=== PATIENT | male | born 1995 | race Caucasian/White ===

== ENCOUNTER 2019-12-30 10:22 | Outpatient (CLI) | payer BC, SELFPAY ==
--- NOTE | 2019-12-30 11:00 | NEURO_ITS ---
TEST: ELECTROENCEPHALOGRAM DIAGNOSIS: SEIZURES PATIENT NUMBER: [id number] EEG NUMBER: [id number] RECORDING DATE: 12/30/19 CLINICAL HISTORY: Patient reports the last couple of months he has been having episodes of d?j? vu and dizziness that lasts for about 10-15 seconds and then is fine. CONDITION OF RECORDING: Awake, drowsy and sleep EEG DESCRIPTION: Basic resting occipital frequency consists of small amount of poorly organized low voltage 8-10hz alpha mixed with low voltage 15-18hz beta. During drowsiness low voltage beta activity is seen diffusely mixed with waxing and waning posterior alpha rhythms and intermittent theta activity. Bilateral symmetrical sleep activity is seen during sleep. Photic stimulation produced normal drive. Hyperventilation produced normal and symmetrical build-up. Nonparoxysmal. Nonfocal. Nonlateralizing. IMPRESSION: No significant abnormalities noted. MTDD
== END 2019-12-30 10:23 | disposition home or self-care (01) ==
PROVIDERS: PCP Family Medicine; Visit Provider Family Medicine
DX: R56.9 Unspecified convulsions (principal)
CPT/HCPCS: 95816

== ENCOUNTER 2020-03-13 07:25 | Outpatient (CLI) | payer BC, SELFPAY ==
--- NOTE | ~2020-03-13 | MR_ITS ---
EXAMINATION: MR brain/brain stem wo/w con DATE: 03/13/2020 08:51 INDICATION: Epilepsy, unspecified, not intractable, without status epilepticus. TECHNIQUE: Magnetic resonance imaging (MRI) of the brain and brainstem was performed without and with 20 mL MultiHance intravenous contrast. Sequences included sagittal and axial T1-weighted FSE, axial diffusion-weighted FS EPI, axial T2*-weighted GRE, axial T2-weighted FLAIR Propeller, axial T2-weight ed Propeller, coronal T2-weighted FLAIR, and coronal T1-weighted 3D FSPGR. Postcontrast axial and cor onal T1-weighted FSE was obtained. Apparent diffusion coefficient (ADC) maps were created. COMPARISON: None. FINDINGS: Right hippocampus demonstrates increased T2-weighted signal intensity, consistent with kofi al temporal sclerosis. There is no intracranial hemorrhage, acute infarction, or abnormal intracrania l mass lesion. The ventricles are normal in size. There is mild mucosal thickening in right maxillary sinus. The orbits are normal. The mastoid air cells are normal. IMPRESSION: 1. Right-sided mesial temporal sclerosis. Reviewed, dictated and finalized at location A.
[2020-03-13 08:15] LABS: Estimated Glomerular Filt Rate > 60
== END 2020-03-13 07:26 | disposition home or self-care (01) ==
PROVIDERS: PCP Family Medicine; Visit Provider Family Medicine
DX: G40.909 Epilepsy, unspecified, not intractable, without status epilepticus (principal)
CPT/HCPCS: 70553; A9577

== ENCOUNTER 2022-05-12 14:53 | Emergency (ER) | payer BC, SELFPAY ==
[2022-05-12 14:55] VITALS: BP 150/98; PULSE 108; RESP 18; TEMP 36.8; O2SAT 98
--- NOTE | 2022-05-12 14:59 | ECG_ITS ---
Measurements Intervals [place] Rate: 70 P: 60 NC: 162 QRS: 34 QRSD: 102 T: 54 QT: 365 QTc: 394 Interpretive Statements SINUS RHYTHM DELAYED PRECORDIAL R/S TRANSITION BORDERLINE ECG NO PREVIOUS ECG AVAILABLE FOR COMPARISON Electronically Signed On 05-12-2022 17:44:52 [employer] by Flako Cline D.O.
[2022-05-12 15:26] LABS: Basophils Percent Auto 0.3 % (0.2-1.2); Eosinophils Absolute Auto 0.2 K/mm3 (0-0.3); Eosinophils Percent Auto 2.7 % (0-4.4); Hematocrit 44.6 % (42.0-52.0); Hemoglobin 15.8 g/dL (14.0-18.0); Immature Granulocyte Absolute 0.02 K/mm3 (0.00-0.031); Immature Granulocyte Percent A 0.3 % (0-0.5); Lymphocytes Absolute Auto 1.86 K/mm3 (0.9-3.2); Lymphocytes Percent Auto 29.9 % (18.3-44.2); Mean Corpuscular HGB Conc 35.4 g/dl (32-36); Mean Corpuscular Hemoglobin 31.7 pg (26-34); Mean Corpuscular Volume 89.6 fl (80-100); Monocytes Absolute Auto 0.6 K/mm3 (0.1-0.6); Neutrophils Absolute Auto 3.6 K/mm3 (1.3-6.7); Neutrophils Percent Auto 57.8 % (45.5-73.1); Platelet Count Result 222 k/mm3 (150-375); Red Blood Count 4.98 M/mm3 (4.6-6.20); Red Cell Distribution Width 11.6 % (11.5-14.5); White Blood Count 6.2 K/mm3 (4.5-10.0)
[2022-05-12 15:38] LABS: Alanine Aminotransferase 54 U/L (6-50); Albumin Level 5.2 g/dL (3.5-5.1); Alkaline Phosphatase 52 U/L (38-126); Anion Gap 15 mmol/L (8-16); Aspartate Amino Transferase 42 U/L (17-59); Bilirubin,Total 0.7 mg/dL (0.2-1.3); Blood Urea Nitrogen 13 mg/dL (9-20); Calcium 9.6 mg/dL (8.4-10.2); Carbon Dioxide 24 mmol/L (22-30); Chloride 103 mmol/L (98-107); Estimated CRCL calculation 112 ml/min; Estimated Glomerular Filt Rate > 60; Glucose 98 mg/dL (65-110); Potassium 3.8 mmol/L (3.4-5.0); Sodium 142 mmol/L (137-145)
[2022-05-12 15:41] LABS: Acetaminophen < 10 ug/mL (10-30); Ethanol < 10 mg/dL (<10); Salicylate < 1.0 mg/dL (2-20)
[2022-05-12 16:03] LABS: Influenza A QL RT-PCR Negative (Negative); Influenza B QL RT-PCR Negative (Negative); SARS-CoV-2 RNA PCR Negative
[2022-05-12 16:05] LABS: Appearance Urine Clear (Clear); Bilirubin Urine Negative (Negative); Blood Urine Negative (Negative); Color Urine Yellow (Yellow); Glucose Urine UA Negative (Negative); Ketones Urine Negative (Negative); Leukocyte Esterase Ur Negative LEU/UL (Negative); Nitrate Urine Negative (Negative); Protein Urine Negative (Negative); Specific Grav Ur >= 1.030 (1.001-1.035); Urobilinogen Urine 0.2 mg/dL (<2.0)
[2022-05-12 16:10] LABS: Add Urine Microscopic? NO
--- NOTE | 2022-05-12 16:15 | ED.PSYCH ---
HPI - Psych General Chief Complaint: Psychiatric Symptoms Stated Complaint: suicidal ideation Time Seen by Provider: 05/12/22 16:13 Source: patient Mode of arrival: ambulatory Limitations: no limitations History of Present Illness HPI Narrative: Patient is a 27-year-old male with a history of bipolar disorder, depression, epilepsy on Keppra, lacosamide, presenting to the emergency department for evaluation of suicidal ideation. Patient reports worsening depression over the past several weeks, now with passive suicidal ideation. Patient states that he has thoughts of wanting to but does not have a plan. There is access to firearms in the house that are not secured in a safe. Patient denies history of suicide attempt in the past. He lives with his mom and states that he is safe at home and has a good support system. Patient was on Lexapro previously for his depression but was recently transition to Trintellix over the past week. Patient has not had an improvement in his symptoms with the new medication. Denies other medication changes. He has been compliant with his antiseizure medications. He denies headache, chest pain, nausea, vomiting. Denies abdominal pain. Patient reports increase sleep requirement secondary to the depression. He reports decreased appetite secondary to depression. Related Data Home Medications Medication Instructions Recorded Confirmed levetiracetam 1,000 mg tablet 1,500 mg PO BID 08/30/20 02/12/22 (Keppra) lacosamide 50 mg tablet (Vimpat) 200 mg PO BID 04/01/21 02/12/22 vortioxetine 5 mg tablet 5 mg PO DAILY 05/12/22 05/12/22 (Trintellix) Allergies Allergy/AdvReac Type Severity Reaction Status Date / Time lamotrigine Allergy Mild Rash Verified 05/12/22 14:53 sulfamethizole Allergy Unknown Skin Verified 05/12/22 14:53 Reaction sulfamethoxazole Allergy Unknown UNKNOWN Verified 05/12/22 14:53 trimethoprim Allergy Unknown UNKNOWN Verified 05/12/22 14:53 Review of Systems Review of Systems: CONSTITUTIONAL: Denies fever, chills, or sweats. EYES: Denies visual changes, redness, or discharge. ENT: Denies rhinorrhea, congestion, sore throat, or otalgia. CARDIOVASCULAR: Denies chest pain, palpitations, or edema. RESPIRATORY: Denies cough or dyspnea. GASTROINTESTINAL: Denies abdominal pain, nausea, vomiting, or diarrhea. GENITOURINARY: Denies dysuria or hematuria. SKIN: Denies rash or itching. MUSCULOSKELETAL: Denies back pain, joint pain, or myalgia. NEUROLOGIC: Denies headache, numbness, or weakness. PSYCHIATRIC: Patient reports depression, reports suicidal ideation without a specific plan PMFSH Past Medical History Medical History Bipolar affective disorder, currently depressed, moderate Hepatitis A History of pilonidal cyst had surgery on one back in 2012 or 2013 and it never went away Pilonidal cyst without abscess Seizure disorder Severe depressive episode with psychotic symptoms Family History Family History Father COPD (chronic obstructive pulmonary disease) Mother COPD (chronic obstructive pulmonary disease) Social History Social History Smoking status: Never smoker Alcohol intake: never Substance use type: marijuana Exam Narrative: GENERAL: Awake, alert, conversant HEAD: Normocephalic, atraumatic. EYES: PERRLA and EOMI. ENT: Nares clear, no rhinorrhea or epistaxis. Mucous membranes moist. NECK: Supple. CHEST: No respiratory distress, breathing even and non labored HEART: Regular rate, sinus rhythm ABDOMEN:Non distended, non tender EXTREMITIES: Normal range of motion. No edema. SKIN: Warm, dry, no rash. NEURO:No focal deficits. Alert and oriented x3 Course Vital Signs Vital signs: Vital Signs Temperature 36.8 C 05/12/22 14:55 Pulse Rate 108 H 05/12/22 14:55 Respiratory Rate 18
[2022-05-12 16:21] LABS: Amphetamine Screen Urine Negative (Negative); Barbiturate Screen Urine Negative (Negative); Benzodiazepines Screen Urine Negative (Negative); Cannabinoid Screen Urine Positive (Negative); Cocaine Screen Urine Negative (Negative); Methadone Screen Urine Negative (Negative); Opiate Screen Urine Negative (Negative); Phencyclidine Screen Urine Negative (Negative)
[2022-05-12 19:00] VITALS: BP 132/93; PULSE 75; RESP 14; O2SAT 100
--- NOTE | 2022-05-12 19:13 | PC.NURSE ---
crisis called will be in to eval pt within the hour.
[2022-05-15 09:00] LABS: Levetiracetam Keppra 32.7 mcg/mL (6.0-46.0)
== END 2022-05-12 22:00 | disposition home or self-care (01) ==
PROVIDERS: Family Medicine; Emergency Provider Emergency Medicine; PCP Family Medicine
DX: R45.851 Suicidal ideations (principal); F31.9 Bipolar disorder, unspecified; G40.909 Epilepsy, unspecified, not intractable, without status epilepticus; Z20.822 Contact with and (suspected) exposure to COVID-19; R94.31 Abnormal electrocardiogram [ECG] [EKG]
CPT/HCPCS: 36415; 80053; 80177; 80307; 81003; 84443; 85025; 87636; 93005; 99284

== ENCOUNTER 2023-03-11 08:41 | Emergency (ER) | payer BC, SELFPAY ==
[2023-03-11 08:58] VITALS: BP 124/93; PULSE 105; RESP 16; TEMP 36.4
[2023-03-11 09:02] VITALS: BP 124/93; PULSE 105; RESP 16; TEMP 36.4
--- NOTE | 2023-03-11 09:42 | ED.URI ---
HPI - URI/Sore Throat General Chief Complaint: Upper Respiratory Infection Stated Complaint: COUGH Time Seen by Provider: 03/11/23 09:28 Source: patient, family (Mother) and RN notes reviewed Mode of arrival: ambulatory Limitations: no limitations History of Present Illness HPI Narrative: Patient presents today complaining of 5 day history of cough that has worsened since onset. Two days ago patient had a phone visit with his PCP and was prescribed benzonatate and prednisone, which has not been improving his symptoms. He has also been taking DayQuil, NyQuil, and cough drops. Denies any additional symptoms to include rhinorrhea, congestion, fever, sore throat, shortness of breath. He is a nonsmoker. Related Data Home Medications Medication Instructions Recorded Confirmed levetiracetam 1,000 mg tablet 1,500 mg PO BID 08/30/20 03/11/23 (Keppra) lacosamide 50 mg tablet (Vimpat) 200 mg PO BID 04/01/21 03/11/23 vilazodone 10 mg tablet (Viibryd) 10 mg PO DAILY 01/14/23 03/11/23 Allergies Allergy/AdvReac Type Severity Reaction Status Date / Time lamotrigine Allergy Mild Rash Verified 03/11/23 09:10 sulfamethizole Allergy Unknown Skin Verified 03/11/23 09:10 Reaction sulfamethoxazole Allergy Unknown UNKNOWN Verified 03/11/23 09:10 trimethoprim Allergy Unknown UNKNOWN Verified 03/11/23 09:10 Review of Systems Review of Systems: CONSTITUTIONAL: Denies body aches, fever, chills, or sweats. EYES: Denies visual changes, redness, or discharge. ENT: Denies rhinorrhea, congestion, sore throat, or otalgia. CARDIOVASCULAR: Denies chest pain, palpitations, or edema. RESPIRATORY: Denies dyspnea.+ cough GASTROINTESTINAL: Denies abdominal pain, nausea, vomiting, or diarrhea. GENITOURINARY: Denies dysuria or hematuria. SKIN: Denies rash, itching, or wounds. MUSCULOSKELETAL: Denies back pain, joint pain, or myalgia. NEUROLOGIC: Denies headache, numbness, tingling, or weakness. PSYCH: Denies depression or anxiety. ON LICENSE OF [facility] Past Medical History Medical History Bipolar affective disorder, currently depressed, moderate Hepatitis A History of pilonidal cyst had surgery on one back in 2012 or 2013 and it never went away Pilonidal cyst without abscess Seizure disorder Severe depressive episode with psychotic symptoms Family History Family History Father COPD (chronic obstructive pulmonary disease) Mother COPD (chronic obstructive pulmonary disease) Social History Social History Smoking status: Never smoker Alcohol intake: never Substance use type: marijuana Lack of Transportation: No Lack of Food: Never True Current Housing: I Have Housing Concerned About Future Housing: No Difficulty Paying Gas/Electric Bills: No Difficulty Paying for Meds: No Currently Unemployed: No Education: Associate Degree Difficulty w/ Childcare or Family Care: No Comments At time of signature, I have reviewed and agree with nursing past medical, surgical, social and family history unless otherwise noted. Please see nursing chart for further information. There is no relevant family history pertinent to the presenting complaint Exam Narrative: GENERAL: Well-appearing, well-nourished, and in no acute distress. HEAD: Normocephalic, atraumatic. EYES: EOMI. No redness or drainage. Conjunctivae normal. ENT: Mucous membranes pink and moist. Nares clear. No rhinorrhea. TMs normal bilaterally. Throat normal. Uvula midline. NECK: Normal AROM. Supple. No lymphadenopathy. CHEST: No respiratory distress. Clear to auscultation. HEART: Regular rate and rhythm. No murmur appreciated. Normal peripheral pulses. EXTREMITIES: Normal range of motion. No edema. SKIN: Warm, dry, no rash. Capillary refill normal. Normal skin turgor. NEURO: No focal defici
== END 2023-03-11 10:00 | disposition home or self-care (01) ==
PROVIDERS: Emergency Provider Nurse Practitioner; PCP Family Medicine
DX: R05.1 Acute cough (principal); Z79.899 Other long term (current) drug therapy
CPT/HCPCS: 99213; G0463

== ENCOUNTER 2025-02-05 12:09 | Emergency (ER) | payer BC, SELFPAY ==
[2025-02-05 12:21] VITALS: BP 145/98; PULSE 101; RESP 16; TEMP 35.8; O2SAT 98
--- NOTE | 2025-02-05 13:22 | ED_ITS ---
HPI - General Adult General Chief complaint: Skin/Abscess/Foreign Body Stated complaint: ABSCESS Source: patient Mode of arrival: ambulatory Limitations: no limitations History of Present Illness HPI narrative: Pt presents for evaluation of redness and swelling in coccyx for the past two day. He has a history of infected pilonidal cyst. He states that he had it drained in the past in the operating room. He denies any fever, chills, nausea, vomiting. He is not diabetic. He soaked in a warm bath last night and it has become more painful since that time. Rates his current pain is 7 out 10 in severity. No drainage from the affected area. He has been taking tylenol for his symptoms. Related Data Home Medications ?Medication ?Instructions ?Recorded ?Confirmed ?Last Taken ?Type levetiracetam 1,000 mg tablet 1,500 mg PO BID 08/30/20 04/14/24 Unknown History (Keppra) lacosamide 50 mg tablet (Vimpat) 200 mg PO BID 04/14/24 Unknown History vilazodone 10 mg tablet (Viibryd) 10 mg PO DAILY 01/1404/14/24 Unknown History Allergies Allergy/AdvReac Type Severity Reaction Status Date / Time lamotrigine Allergy Mild Rash Verified 02/05/25 12:54 sulfamethizole Allergy Unknown Skin Verified 02/05/25 12:54 Reaction sulfamethoxazole Allergy Unknown UNKNOWN Verified 02/05/25 12:54 trimethoprim Allergy Unknown UNKNOWN Verified 02/05/25 12:54 Review of Systems Review of Systems: CONSTITUTIONAL: Denies fever, chills, or sweats. EYES: Denies visual changes, redness, or discharge. ENT: Denies rhinorrhea, congestion, sore throat, or otalgia. CARDIOVASCULAR: Denies chest pain, palpitations, or edema. RESPIRATORY: Denies cough or dyspnea. GASTROINTESTINAL: Denies abdominal pain, nausea, vomiting, or diarrhea. GENITOURINARY: Denies dysuria or hematuria. SKIN: Reports redness to the coccyx MUSCULOSKELETAL:Reports pain in the coccyx NEUROLOGIC: Denies headache, numbness, dizziness, or weakness. PSYCHIATRIC: Denies anxiety or depression. FORMERLY [facility] Past Medical History Medical History Infected pilonidal cyst Strain of muscle and tendon of front wall of thorax, initial encounter right sided Seizure disorder Hepatitis A History of pilonidal cyst had surgery on one back in 2012 or 2013 and it never went away Bipolar affective disorder, currently depressed, moderate Pilonidal cyst without abscess Severe depressive episode with psychotic symptoms Surgical History Surgical History History of incision and drainage Family History Family History Father COPD (chronic obstructive pulmonary disease) Mother COPD (chronic obstructive pulmonary disease) Social History Social History Smoking status: Never smoker Alcohol intake: never Substance use type: marijuana Lack of Transportation: No Lack of Food: Never True Current Housing: I Have Housing Concerned About Future Housing: No Difficulty Paying Gas/Electric Bills: No Difficulty Paying for Meds: No Currently Unemployed: No Education: Associate Degree Difficulty w/ Childcare or Family Care: No Exam Narrative: GENERAL: Well-appearing, well-nourished, and in no acute distress. HEAD: Normocephalic, atraumatic. EYES: PERRLA and EOMI. ENT: Nares clear, no rhinorrhea or epistaxis. Mucous membranes moist. Oropharynx without tonsillar hypertrophy exudate or other lesions. Bilateral TMs pearly martin nonbulging NECK: Supple. No adenopathy or masses. No carotid bruits or JVD CHEST: Clear to auscultation. No respiratory distress. No wheezes rales or rhonchi HEART: Regular rate and rhythm. No murmur heard. Normal peripheral pulses. ABDOMEN: Soft, nontender, nondistended, normal active bowel sounds. EXTREMITIES: Normal range of motion. No edema. There is tenderness over the coccyx SKIN: there is an approximately 2.5cm area erythema and induration noted to the coccyx NEURO: No focal deficits. Alert and oriented x3. PSYCH: Normal mood and affect. Course Course Emergency Course: This is a 29 year male who presented for evaluation of pain, redness, and swelling in the area of the coccyx. This appears to be an infected pilonidal cyst. There does not appear to be drainable fluid collection is there is no fluctuance on exam. Recommend oral antibiotics and pain control. Will discharge with clindamycin and hydrocodone. He was provided with a paper prescription for hydrocodone as it would not send electronically. He should follow-up with his primary provider. Application of warm moist heat may help. Go to the ER for worsening symptoms. Patient in agreement with plan care. Level of Care: Express Care Visit Vital Signs Vital signs: Vital Signs Temperature 35.8 C L 02/05/25 12:21 Pulse Rate 101 H 02/05/25 12:21 Respiratory Rate 16 02/05/25 12:21 Blood Pressure 145/98 H 02/05/25 12:21 Pulse Oximetry 98 02/05/25 12:21 Temperature 35.8 C L 02/05/25 12:21 Pulse Rate 101 H 02/05/25 12:21 Respiratory Rate 16 02/05/25 12:21 Blood Pressure 145/98 H 02/05/25 12:21 Pulse Oximetry 98 02/05/25 12:21 Medical Decision Making Vital Signs Vital Signs: Vital Signs Temperature 35.8 C L 02/05/25 12:21 Pulse Rate 101 H 02/05/25 12:21 Respiratory Rate 16 02/05/25 12:21 Blood Pressure 145/98 H 02/05/25 12:21 Pulse Oximetry 98 02/05/25 12:21 Temperature 35.8 C L 02/05/25 12:21 Pulse Rate 101 H 02/05/25 12:21 Respiratory Rate 16 02/05/25 12:21 Blood Pressure 145/98 H 02/05/25 12:21 Pulse Oximetry 98 02/05/25 12:21 Discharge Plan Discharge Clinical Impression: Infected pilonidal cyst Patient Disposition: Home Condition: Stable Instructions: Antibiotic Form, Pilonidal Cyst (ED) Patient Language: Macedonian Prescriptions: New clindamycin HCl [Cleocin HCl] 300 mg capsule 300 mg PO Q6H Qty: 40 0RF No Action levetiracetam [Keppra] 1,000 mg tablet 1,500 mg PO BID Vimpat 50 mg tablet 200 mg PO BID vilazodone [Viibryd] 10 mg tablet 10 mg PO DAILY Rx Instructions: must administer with a meal/food amoxicillin 500 mg capsule 500 mg PO Q8H Qty: 21 1RF Follow-up/Referrals: Onesimo Roblero MD [Primary Care Provider, [facility]] Time of Disposition: 13:19
== END 2025-02-05 13:26 | disposition home or self-care (01) ==
PROVIDERS: Emergency Provider Nurse Practitioner; PCP Family Medicine
DX: L05.91 Pilonidal cyst without abscess (principal); L30.3 Infective dermatitis; G40.909 Epilepsy, unspecified, not intractable, without status epilepticus; F31.9 Bipolar disorder, unspecified
CPT/HCPCS: 99213; G0463

== ENCOUNTER 2025-03-28 10:01 | Emergency (ER) | payer BC, SELFPAY ==
[2025-03-28 10:04] VITALS: BP 163/100; PULSE 94; RESP 20; TEMP 36.4; O2SAT 98
[2025-03-28 10:48] LABS: Hematocrit 49.0 % (42.0-52.0); Hemoglobin 16.7 g/dL (14.0-18.0); Immature Granulocyte Percent A 0.3 % (0-0.5); Lymphocytes Absolute Auto 2.05 K/mm3 (0.9-3.2); Mean Corpuscular HGB Conc 34.1 g/dl (32-36); Mean Corpuscular Hemoglobin 31.5 pg (26-34); Mean Corpuscular Volume 92.5 fl (80-100); Nucleated Red Blood Cells Absolute Auto 0.000 K/mm3 (0.0-0.012); Nucleated Red Blood Cells Perc 0.0 % (0.0-0.2); Platelet Count Result 262 k/mm3 (150-375); Red Blood Count 5.30 M/mm3 (4.6-6.20); White Blood Count 7.7 K/mm3 (4.5-10.0)
[2025-03-28 11:10] LABS: SARS-CoV-2 RNA PCR Negative (Negative)
[2025-03-28 11:17] LABS: Alanine Aminotransferase 106 U/L (6-50); Albumin Level 5.1 g/dL (3.5-5.1); Alkaline Phosphatase 55 U/L (38-126); Anion Gap 12 mmol/L (4-12); Aspartate Amino Transferase 65 U/L (17-59); Bilirubin,Total 1.0 mg/dL (0.2-1.3); Blood Urea Nitrogen 13 mg/dL (9-20); Calcium 9.6 mg/dL (8.4-10.2); Carbon Dioxide 22 mmol/L (22-30); Chloride 106 mmol/L (98-107); Estimated CRCL calculation 130 ml/min; Estimated Glomerular Filt Rate > 60; Glucose 114 mg/dL (65-110); Potassium 4.3 mmol/L (3.4-5.0); Sodium 140 mmol/L (137-145); Total Protein 7.9 g/dL (6.3-8.2)
--- OUTSIDE RECORDS SUMMARY | 2025-03-28 11:30 | XMS_ITS | Clinical Summary ---
Author Organization [facility] [employer] Address [address] [place] [address] Care Team Providers Care [employer] Name Role Phone Onesimo Roblero MD Primary Care Provider [phone] Source Comments [facility] [employer],non-owned Affiliates and Associated Physician Practices is amultiple site organization consisting of ambulatory clinics and hospital sitesin [place], [place], [place] and [place]. This disclosure is being madepursuant to the Care Everywhere program and may not contain all information available regarding this patient. Last updated 18.[facility] [employer] Allergies Active Allergy Reactions Criticality Noted Date Comments Lamotrigine Urticaria,Itching Medium 10/29/2020 [place] Unknown 04/20/2024 Sulfamethoxazole W-Trimethoprim Urticaria Medium 10/13 Medications * Be aware that medications may not be up to date on this document. Alwaysverify current medications with the patient. Spravato, 84 MG Dose, 28 MG/DEVICE nasal spray 04/13/2023 Active vilazodone (Viibryd) 40 MG tablet Take 1 (one) tablet by mouth once daily 03/18/2023 Active levETIRAcetam (Keppra) 1000 MG tablet TAKE 1 AND 1/2 TABLETS BY MOUTH TWICE DAILY FOR SEIZURES 270 tablet 3 08/15/2024 Active lacosamide (Vimpat) 200 MG tablet TAKE 1 TABLET BY MOUTH TWICE DAILY 180 tablet 1 12/29/2024 Active Active Problems Problem Noted Date Diagnosed Date Seizures 10/29/2020 Encounters Date Type Department Care Team Description 12/29/2024 Refill [facility] [employer] [facility] [address] [id number] Tung Madison MD MEDICATION REFILL from Last 3 Months Social History Tobacco Use Types Packs/Day Years Used Date Smoking Tobacco: Never Smokeless Tobacco: Never Sex and Gender Information Value Date Recorded Sex Assigned at Not on file Legal Sex Male 9:30 AM CDT Gender Identity Not on file Sexual Orientation Not on file Last Filed Vital Signs Vital Sign Reading Time Taken Comments Blood Pressure 110/90 12/12/2020 2:17 PM CDT Pulse 74 12/12/2020 2:17 PM CDT Temperature 36.7 C (98 F) 11/02/2020 1:39 PM CDT Respiratory Rate 14 09/12/2021 12:01 PM CDT Oxygen Saturation 98% 12/12/2020 2:17 PM CDT Inhaled Oxygen Concentration - - Weight 111.1 kg (245 lb) 04/20/2024 12:39 PM [employer] Height 172.7 cm (5' 8) 04/20/2024 12:39 PM [employer] Body Mass Index 37.25 04/20/2024 12:39 PM [employer] Plan of Treatment Upcoming Encounters Date Type Department Care Team (Late st Contact Info) Description 04/19/2025 12:00 PM [employer] Office Visit [facility] [address] [id number] [place] [address] [address] Health Maintenance Due Date Last Done Comments HIV SCREENING 2009 HEPATITIS C SCREENING 04/19/2012 DTAP/TDAP/TD VACCINES (1 - Tdap) 2013 HEPATITIS B VACCINE (1 of 3 - 19+ 3-dose series) 2013 HPV VACCINE (1 - 3-dose SCDM series) 2021 DEPRESSION SCREENING 06/15/2024 COVID-19 VACCINE (1 - 2023-2 5 season) 2025 INFLUENZA VACCINE (#1) 2025 ZOSTER VACCINE (1 of 2) 2044 HIB VACCINE Aged Out No longer eligi ble based on patient's age to complete this topic MENINGOCOCCAL (Group B) VACC INE SHARED DECISION-MAKING Aged Out No longer eligibl e based on patient's age to complete this topic MENINGOCOCCAL GROUPS A/C/Y/W VACCINE Aged Out No longer eligible b ased on patient's age to complete this topic PNEUMOCOCCAL VACCINE Aged Out No long er eligible based on patient's age to complete this topic Insurance ANTHEM Advance Directives * Full Code (Latest Code Status on File) Date Activated Date Inactivated Comments 10/31/2020 2:02 PM 11/02/2020 3:00 PM * Full Code Date Activated Date Inactivated Comments 10/29/2020 9:56 AM 10/31/2020 2:02 PM Care Teams [employer] Relationship Specialty Start Date End Date Onesimo Roblero MD [facility] [place] [address] PCP - General Family Medicine 10/29/20
--- OUTSIDE RECORDS SUMMARY | 2025-03-28 11:30 | XMS_ITS | Patient Health Record ---
Author Organization [facility] [employer] Address [address] [facility] [address] [place] [address] Care Team Providers Care Appetizer Packer Name Role Phone Stacy Ferrer Unavailable [phone] Roxann Doe Unavailable [phone] Omar Kay Unavailable [phone] Feli Gallego Unavailable [phone] Kemi Raya Unavailable [phone] Saleem Kwon Unavailable [phone] Allergies Allergen (clinical drug ingredient) Drug/Non Drug Allergy documented on EMR Reaction Allergy Type Onset Date Status lamotrigine lamoTRIgine Unknown Drug Allergy 10/23/2023 Ac tive Septra Unknown Drug Allergy 10/23/2023 Active Results Component Value Reference Range Notes UDT (Not yet reviewed by pro vider) Interpretation: Performing Lab: Notes/Report: THC n 0 - 50 ng/ml Cocaine n 0 - 300 ng/ml Amphetamine n 0 - 1000 ng/ml Buprenorphine (BUP) n 0 - 10 ng/ml Secobarbital (Bar) n 0 - 300 ng/ml Oxazepam (BZO) n 0 - 300 ng/ml 1-fpebsubevj-3,9-vsrnnqzn-3,3-diphenylpyrrolidine (BRANDY P) n 0 - 300 ng/ml Methamphetamine (MET) n 0 - 1000 ng/ml Methylenedioxymethamphetamine (MDMA) n 0 - 500 ng/ml Morphine (MOP 300/[id number]) n 0 - 300 ng/ml Methadone (MTD) n 0 - 300 ng/ml Phencyclidine (PCP) n 0 - 25 ng/ml Nortriptyline (TCA) n 0 - 1000 ng/ml Oxycodone n 0 - 300 ng/ml x n 0 - 300 ng/ml Reason For Referral No Information Medications Medication SIG (Take, Route, Frequency, Duration) Notes Start Date End Date Status levETIRAcetam 1000 MG Tablet 1 tablet Oral twice a day; Duration: 90 days Active Spravato (84 MG Dose) 28 MG/DEVICE Solution Therapy Pack 3 sprays in each nostril Nasally once a week trying to transition back to weekly 03/13/2025 Active Nettie Carbonate 300 MG Capsule 1 capsule Orally Twice a day; Duration: 30 days 01/31/2025 Active Sertraline HCl 50 MG Tablet 1 tablet Orally Once a day; Duration: 30 days 03/24/2025 Active Lacosamide 200 MG Tablet 1 tablet Oral Twice a day; Duration: 90 days Active Vitamin D (Ergocalciferol) 1.25 MG (27937 UT) Capsule TAKE 1 CAPSULE BY MOUTH 1 TIME A WEEK; Duration: 28 Active Social History Tobacco Use: Social History Observation Description Date Details (start date - stop date) Never Smoker NA - NA Sex Assigned At : Social History Observation Description Sex Assigned At Male Social History Miscellaneous: Social Info Question Answer Notes Safety issues: Are there any firearms in the house? No Social History Social Info Question Answer Notes Household: Marital Status: Single Number of Adults in household: 2 Number of Children in Household: 0 Level of Education: Not Finished College Household: Social Info Question Answer Notes Household Marital status: single Number of adults in household: 2 Tawanda dias with his mother. Level of education: finished college associates degree Drug/Alcohol: Social Info Question Answer Notes Drugs Have you used drugs other than those for medical reasons in the past 12 months? Yes Methamphetamine? No Crack? No LSD? No Ecstacy? No Prescription opiates? No Marijuana? Yes Ketamine? No PCP? No Is there a minor (18 years or younger) at risk at home? No Are you still using? Yes Do you want treatment? No AUDIT-C (Standard) Did you have a drink containi ng alcohol in the past year? Yes How often did you have six or more drinks on one occasion in the past year? Never (0 point) How many drinks did you have on a typical day when you were drinking in the past year? 3 or 4 drinks (1 point) How often did you have a drink containing alcohol in the past year? Monthly or less (1 point) Tobacco Use: Social Info Question Answer Notes Tobacco Control (Standard) Tobacco use: Nonsmoker Additional Details Category Social Info Options Details Miscellaneous: Occupation: Print finishe r Migrated Social History Migrated Social History Alcohol Intake: None 01/21/2023,Tobacco Years: Never smoker 11/13/2022 Drug/Alcohol: Do you smoke marijuana? Adm its, edibles 1-2 times a month Do you drink alcohol? Socially, Rarely Problems Problem Type SNOMED Code ICD Code Onset Dates Problem Status W/U Status Risk Notes Problem Moderate recurrent major depression (57631759) Major depressive disorder, recurrent, moderate (F33.1) Active confirmed Problem Severe recurrent major depression without psychotic features (38775363) Major depressive disorder, recurrent severe without psychotic features (F33.2) Active confirmed Problem Generalized anxiety disorder (38974173) Generalized anxiety disorder (F41.1) 10/16/19 24 Active confirmed Problem Attention deficit hyperactivity disorder, predominantly inattentive type (90062383) Attention-deficit hyperactivity disorder, predominantly inattentive type (F90.0) 03/30/20 23 Active confirmed Problem Idiopathic generalized epilepsy (disorder) (31846568) Generalized idiopathic epilepsy and epileptic syndromes, not intractable, 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) Active confirmed Problem Screening for cardiovascular system disease (082443326) Encounter for screening for cardiovascular disorders (Z13.6) Active confirmed Problem Dietary management surveillance (640968505) Dietary counseling and surveillance (Z71.3) Active confirmed Problem Mild recurrent major depression (08185308) MDD (major depressive disorder), recurrent episode, mild (F33.0) Active confirmed Problem Feeling suicidal (562415362) Passive suicidal ideations (R45.851) Active confirmed Vital Signs Heart Rate 69 /min 03/28/2025 Oximetry 97 % 03/23/2025 Height-cm 172.72 cm 03/28/2025 Blood pressure diastolic 96 mm Hg 03/28/2025 Weight-kg 117.94 kg 03/28/2025 Height 68.00 in 03/28/2025 Blood pressure systolic 130 mm Hg 03/28/2025 Weight 260 lbs 03/28/2025 BMI 39.53 kg/m2 03/28/2025 Encounters Encounter Location Date Provider Diagnosis [facility] [address] [place] [address] 03/28/2025 Stacy Ferrer [facility], [facility] [address] [place] [address] 03/29/2024 Saleem Clubb Major depressive disorder, recurrent severe without psychotic features F33.2 [facility], [facility] [address] [place] [address] 04/12/2024 Saleem Clubb MDD (major depressiv e disorder), recurrent episode, mild F33.0 [facility], [facility] [address] [place] [address] 05/05/2024 Saleem Clubb Major depressive disorder, recurrent severe without psychotic features F33.2 [facility], [facility] [address] [place] [address] 05/19/2024 Roxann Brook Major depressive disorder, recurrent severe without psychotic features F33.2 [facility], [facility] [address] [place] [address] 06/02/2024 Omar Kay Major depressive disorder, recurrent severe without psychotic features F33.2 and Vitamin D deficiency, unspecified E55.9 [facility], [facility] [address] [place] [address] 06/16/2024 Saleem Clubb Major depressive disorder, recurrent severe without psychotic features F33.2 [facility], [facility] [address] [place] [address] 06/30/2024 Saleem Clubb Major depressive disorder, recurrent severe without psychotic features F33.2 [facility], [facility] [address] [place] [address] 07/14/2024 Saleem Clubb Major depressive disorder, recurrent severe without psychotic features F33.2 [facility], [facility] [address] [place] [address] 07/15/2024 Thena Lashonda Major depressive disorder, recurrent severe without psychotic features F33.2 ; Generalized anxiety disorder F41.1 and Attention-deficit hyperactivity disorder, predominantly inattentive type F90.0 [facility], [facility] [address] [place] [address] 07/28/2024 Saleem Clubb Major depressive disorder, recurrent severe without psychotic features F33.[address] [address] 07/29/2024 Thena Lashonda Major depressive disorder, recurrent severe without psychotic features F33.2 ; Generalized anxiety disorder F41.1 and Attention-deficit hyperactivity disorder, predominantly inattentive type F90.[address] [address] 08/11/2024 Saleem Clubb Major depressive disorder, recurrent severe without psychotic features F33.[address] [address] 08/25/2024 Saleem Clubb Major depressive disorder, recurrent severe without psychotic features F33.2 and Encounter for screening for depression Z13.[address] [address] 09/08/2024 Saleem Clubb Major depressive disorder, recurrent severe without psychotic features F33.2 ; Encounter for screening for cardiovascular disorders Z13.6 and Encounter for screening for depression Z13.[address] [address] 09/09/2024 Stacy Ferrer MDD (major depressiv e disorder), recurrent episode, mild F33.0 ; Attention-deficit hyperactivity disorder, predominantly inattentive type F90.0 ; Generalized anxiety disorder F41.1 ; Generalized idiopathic epilepsy and epileptic syndromes, not intractable, without status epilepticus G40.309 ; Encounter for screening for depression Z13.31 and Encounter for screening for cardiovascular disorders Z13.[address] [address] 09/22/2024 Saleem Clubb MDD (major depressiv e disorder), recurrent episode, mild F33.0 ; Generalized anxiety disorder F41.1 ; Attention-deficit hyperactivity disorder, unspecified type F90.9 ; Dietary counseling and surveillance Z71.3 ; Generalized idiopathic epilepsy and epileptic syndromes, not intractable, without status epilepticus G40.309 and Encounter for screening for cardiovascular disorders Z13.[address] [address] 10/06/2024 Stacy Ferrer Major depressive disorder, recurrent severe without psychotic features F33.2 ; Encounter for screening for cardiovascular disorders Z13.6 and Encounter for screening for depression Z13.31 [facility] [employer] [address] [address] 10/20/2024 Saleem Clubb Major depressive disorder, recurrent severe without psychotic features F33.2 ; Encounter for screening for cardiovascular disorders Z13.6 ; Passive suicidal ideations R45.851 ; Encounter for screening for depression Z13.31 and Dietary counseling and surveillance Z71.3 [facility] [employer] [address] [address] 10/21/2024 Stacy Carissa Major depressive disorder, recurrent, moderate F33.1 ; Generalized anxiety disorder F41.1 ; Passive suicidal ideations R45.851 ; Attention-deficit hyperactivity disorder, predominantly inattentive type F90.0 ; Generalized idiopathic epilepsy and epileptic syndromes, not intractable, without status epilepticus G40.309 ; Encounter for screening for cardiovascular disorders Z13.6 and Encounter for screening for depression Z13.31 [facility] [employer] [address] [address] 11/03/2024 Saleem Clubb Major depressive disorder, recurrent severe without psychotic features F33.2 ; Passive suicidal ideations R45.851 ; Generalized anxiety disorder F41.1 ; Attention-deficit hyperactivity disorder, predominantly inattentive type F90.0 ; Encounter for screening for cardiovascular disorders Z13.6 and Dietary counseling and surveillance Z71.3 [facility] [employer] [address] [address] 11/17/2024 Saleem Clubb Major depressive disorder, recurrent severe without psychotic features F33.2 ; Generalized anxiety disorder F41.1 ; Generalized idiopathic epilepsy and epileptic syndromes, not intractable, without status epilepticus G40.309 ; Dietary counseling and surveillance Z71.3 and Encounter for screening for cardiovascular disorders Z13.6 [facility] [employer] [address] [address] 12/01/2024 Saleem Clubb Major depressive disorder, recurrent severe without psychotic features F33.2 ; Encounter for screening for cardiovascular disorders Z13.6 ; Generalized anxiety disorder F41.1 ; Generalized idiopathic epilepsy and epileptic syndromes, not intractable, without status epilepticus G40.309 and Dietary counseling and surveillance Z71.3 [facility] [address] [place] [address] 12/02/2024 Stacy Ferrer Encounter for screening for depression Z13.31 ; Major depressive disorder, recurrent severe without psychotic features F33.2 ; Generalized anxiety disorder F41.1 ; Attention-deficit hyperactivity disorder, predominantly inattentive type F90.0 ; Generalized idiopathic epilepsy and epileptic syndromes, not intractable, without status epilepticus G40.309 ; Passive suicidal ideations R45.851 ; Encounter for screening for cardiovascular disorders Z13.6 and Fatigue, unspecified type R53.83 [facility] [employer] [facility] [address] [place] [address] 12/29/2024 Saleem Clubb Major depressive disorder, recurrent severe without psychotic features F33.2 ; Encounter for screening for cardiovascular disorders Z13.6 ; Dietary counseling and surveillance Z71.3 ; Generalized anxiety disorder F41.1 ; Attention-deficit hyperactivity disorder, predominantly inattentive type F90.0 ; Generalized idiopathic epilepsy and epileptic syndromes, not intractable, without status epilepticus G40.309 ; Passive suicidal ideations R45.851 and Fatigue, unspecified type R53.83 [facility] [employer] [facility] [address] [place] [address] 12/30/2024 Stacy Ferrer Major depressive disorder, recurrent severe without psychotic features F33.2 ; Generalized anxiety disorder F41.1 and Passive suicidal ideations R45.851 [facility] [employer] [facility] [address] [place] [address] 01/12/2025 Saleem Clubb Major depressive disorder, recurrent severe without psychotic features F33.2 ; Generalized anxiety disorder F41.1 and Passive suicidal ideations R45.851 [facility] [employer] [facility] [address] [place] [address] 01/26/2025 Saleem Clubb Major depressive disorder, recurrent severe without psychotic features F33.2 ; Generalized anxiety disorder F41.1 and Passive suicidal ideations R45.851 [facility] [employer] [facility], [facility] [address] [place] [address] 01/31/2025 Saleem Clubb Major depressive disorder, recurrent severe without psychotic features F33.2 ; Generalized anxiety disorder F41.1 and Passive suicidal ideations R45.851 [facility], [facility] [address] [place] [address] 01/31/2025 Kemi Raya Major depressive disorder, recurrent severe without psychotic features F33.2 and Suicidal ideations R45.851 [facility] [address] [place] [address] 02/02/2025 Stacy Hagopian Major depressive disorder, recurrent severe without psychotic features F33.2 ; Generalized anxiety disorder F41.1 ; Attention-deficit hyperactivity disorder, predominantly inattentive type F90.0 and Passive suicidal ideations R45.851 [facility] [address] [place] [address] 02/09/2025 Roxann Brook Major depressive disorder, recurrent severe without psychotic features F33.2 [facility] [address] [place] [address] 02/23/2025 Saleem Clubb Major depressive disorder, recurrent severe without psychotic features F33.2 [facility] [address] [place] [address] 03/06/2025 Stacy Hagopian Major depressive disorder, recurrent severe without psychotic features F33.2 ; Generalized anxiety disorder F41.1 ; Attention-deficit hyperactivity disorder, predominantly inattentive type F90.0 and Passive suicidal ideations R45.851 [facility] [address] [place] [address] 03/09/2025 Stacy Hagopian Major depressive disorder, recurrent severe without psychotic features F33.2 [facility] [address] [place] [address] 03/16/2025 Stacy Hagopian Major depressive disorder, recurrent severe without psychotic features F33.2 [facility] [address] [place] [address] 03/23/2025 Stacy Hagopian Major depressive disorder, recurrent severe without psychotic features F33.2 [facility] [employer] [facility], [facility] [address] [place] [address] 03/24/2025 Saleem Clubb Major depressive disorder, recurrent severe without psychotic features F33.2 ; Generalized anxiety disorder F41.1 and Passive suicidal ideations R45.851 [facility], [facility] [address] [place] [address] 06/06/2024 Feli Gallego [facility], [facility] [address] [place] [address] 06/29/2024 Saleem Clubb MDD (major depressiv e disorder), recurrent episode, mild F33.0 [facility], [facility] [address] [place] [address] 07/06/2024 Saleem Clubb Major depressive disorder, recurrent severe without psychotic features F33.2 [facility], [facility] [address] [place] [address] 01/26/2025 Stacy Ferrer Major depressive disorder, recurrent severe without psychotic features F33.2 [facility], [facility] [address] [place] [address] 01/31/2025 Stacy Ferrer [facility], [facility] [address] [place] [address] 02/03/2025 Stcay Ferrer Major depressive disorder, recurrent severe without psychotic features F33.2 [facility], [facility] [address] [place] [address] 03/13/2025 Stacy Ferrer Major depressive disorder, recurrent severe without psychotic features F33.2 [facility], [facility] [address] [place] [address] 03/24/2025 Stacy Ferrer [facility], [facility] [address] [place] [address] 03/28/2025 Stacy Ferrer [facility], [facility] [address] [place] [address] 04/03/2024 Feli Lashonda [facility], [facility] [address] [place] [address] 04/10/2024 Feli Gallego [facility], [facility] [address] [place] [address] 06/03/2024 Feli Lashonda [facility], [facility] [address] [place] [address] 10/21/2024 Stacy Ferrer [facility], [facility] [address] [place] [address] 12/20/2024 Stacy Ferrer [facility], [facility] [address] [place] [address] 12/30/2024 Stacyrose Ferrer [facility] [employer] [facility] [address] [place] [address] 01/06/2025 Stacy Ferrer [facility] [employer] [facility] [address] [place] [address] 02/01/2025 Stacy Rocveronica Assessments Encounter Date Diagnosis (ICD Code) Assessment Notes Treatment Notes Treatment Clinical Notes Section Notes 07/06/2024 Major depressive disorder, recurrent severe without psychotic features (ICD-10 - F33.2) 07/15/2024 Major depressive disorder, recurrent severe without psychotic features (ICD-10 - F33.2) 01/26/2025 Major depressive disorder, recurrent severe without psychotic features (ICD-10 - F33.2) 02/03/2025 Major depressive disorder, recurrent severe without psychotic features (ICD-10 - F33.2) 03/13/2025 Major depressive disorder, recurrent severe without psychotic features (ICD-10 - F33.2) 12/30/2024 Major depressive disorder, recurrent severe without psychotic features (ICD-10 - F33.2) 03/16/2025 Major depressive disorder, recurrent severe without psychotic features (ICD-10 - F33.2) continue current treatment as prescribed by primary psychiatric care provider 03/23/2025 Major depressive disorder, recurrent severe without psychotic features (ICD-10 - F33.2) continue current treatment as prescribed by primary psychiatric care provider 03/24/2025 Major depressive disorder, recurrent severe without psychotic features (ICD-10 - F33.2) Assessment and plan reviewed with patient Call for problems with medication, side effects or need for dosage change Compliance issues reviewed Discussed the risks/benefits of this medication Discussed medication side effects Return if symptoms worsen Treatment options reviewed. discussed that it can take weeks to see full therapeutic effects of psychotropic medications. discussed when to seek emergency services. discussed crisis prevention hotline [phone]., Depression Treatment: Care Instructions material was published 03/24/2025 Generalized anxiety disorder (ICD-10 - F41.1) 03/06/2025 Major depressive disorder, recurrent severe without psychotic features (ICD-10 - F33.2) I'm considering augmenting therapy with a new medication or starting/switchi ng to a new medication Medication considered [id number] Sertraline (Zoloft), CYP2D5 Aripiprazole (Abilify), CYP2D6 Brexpiprazole (Rexulti ) and CYP2D6 Venlafaxine (Effexor ) I'm considering a dosage adjustment to currently prescribed medication(s) Hayr Have you considered non-genetic factors to make a preliminary drug selection, including a personalized medication decision based on the patient's diagnosis, the patient's other medical conditions, other medications the patient is taking, professional judgment, clinical science and basic science pertinent to the drug (e.g. mechanism of action, side effects), the patient's past medical history, and when pertinent, family history and the patient's preferences and values? yesGeneSight MTHFR __XX____ Yes NO 01/31/2025 Major depressive disorder, recurrent severe without psychotic features (ICD-10 - F33.2) Major Depressive Disorder with Suicidal Ideation Assessment: Yi reports a history of depression with recent exacerbation of symptoms, including increased irritability and more frequent, intrusive suicidal thoughts. The patient discontinued medications, which may have contributed to symptom amplification. Yi has been in and out of therapy since high school but struggles with consistency. The patient expresses feelings of being stuck developmentally at age 17, while peers are progressing in life. Yi's depression appears to be significantly impacting social functioning, career development, and overall quality of life. The patient is currently undergoing Spravato treatments, suggesting a history of treatment-resis tant depression. 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 The patient recently quit this job due to stress and dissatisfaction . Yi has an associate's degree but was unable to complete a bachelor's degree, resulting in educational debt. The patient expresses concern about falling behind peers in career development and independent living (still residing with mother at age 29). Social interactions appear limited, with primary social outlet being online [employer] sessions on Tuesdays. He denies spending time with friends in person Plan: - Discuss potential career counseling or vocational rehabilitation services - Encourage exploration of writing as a potential career path, given Yi's reported strength in this area - Develop strategies for time management and setting achievable goals for personal and professional development - Explore opportunities for expanding social interactions and building in-person relationships Internet Addiction and Time Management Issues Assessment: Yi reports spending significant time mindlessly on the internet and struggles with setting and maintaining boundaries for internet use. The patient acknowledges difficulty in from online distractions and maintaining focus on productive activities. This behavior pattern is interfering with personal goals, such as exercise and self-improvemen t. Plan: - Introduce concept of digital detox and gradual reduction of internet use - Suggest use of bear-based time limits for internet and social media use - Encourage development of alternative leisure activities, potentially incorporating Yi's interest in writing - Discuss strategies for improving focus and concentration, such as mindfulness techniques or environmental modifications 01/31/2025 Suicidal ideations (ICD-10 - R45.851) Major Depressive Disorder with Suicidal Ideation Assessment: Yi reports a history of depression with recent exacerbation of symptoms, including increased irritability and more frequent, intrusive suicidal thoughts. The patient discontinued medications, which may have contributed to symptom amplification. Yi has been in and out of therapy since high school but struggles with consistency. The patient expresses feelings of being stuck developmentally at age 17, while peers are progressing in life. Yi's depression appears to be significantly impacting social functioning, career development, and overall quality of life. The patient is currently undergoing Spravato treatments, suggesting a history of treatment-resis tant depression. 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 The patient recently quit this job due to stress and dissatisfaction . Yi has an associate's degree but was unable to complete a bachelor's degree, resulting in educational debt. The patient expresses concern about falling behind peers in career development and independent living (still residing with mother at age 29). Social interactions appear limited, with primary social outlet being online [employer] sessions on Tuesdays. He denies spending time with friends in person Plan: - Discuss potential career counseling or vocational rehabilitation services - Encourage exploration of writing as a potential career path, given Yi's reported strength in this area - Develop strategies for time management and setting achievable goals for personal and professional development - Explore opportunities for expanding social interactions and building in-person relationships Internet Addiction and Time Management Issues Assessment: Yi reports spending significant time mindlessly on the internet and struggles with setting and maintaining boundaries for internet use. The patient acknowledges difficulty in from online distractions and maintaining focus on productive activities. This behavior pattern is interfering with personal goals, such as exercise and self-improvemen t. Plan: - Introduce concept of digital detox and gradual reduction of internet use - Suggest use of bear-based time limits for internet and social media use - Encourage development of alternative leisure activities, potentially incorporating Yi's interest in writing - Discuss strategies for improving focus and concentration, such as mindfulness techniques or environmental modifications 02/02/2025 Major depressive disorder, recurrent severe without psychotic features (ICD-10 - F33.2) 01/31/2025 Major depressive disorder, recurrent severe without psychotic features (ICD-10 - F33.2) Electronic Prior Authorization was requested for Vraylar 1.5 MG Capsule. Provider can order medication once approval received. - provided vryalar 1.5 mg samples. - decrease trintellix to 10 mg daily for 7 days then discontinue - plan to rule out bipolar disorder - discussed with patient that if bipolar disorder is rulled in then Spravato would need to be discontinued. 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 Provider can order medication once approval received. 12/29/2024 Major depressive disorder, recurrent severe without psychotic features (ICD-10 - F33.2) continue current treatment as prescribed by primary psychiatric care provider 01/12/2025 Major depressive disorder, recurrent severe without psychotic features (ICD-10 - F33.2) continue current treatment as prescribed by primary psychiatric care provider 01/12/2025 Generalized anxiety disorder (ICD-10 - F41.1) 10/21/2024 Major depressive disorder, recurrent, moderate (ICD-10 - F33.1) 10/21/2024 Generalized anxiety disorder (ICD-10 - F41.1) 06/29/2024 MDD (major depressive disorder), recurrent episode, mild (ICD-10 - F33.0) 03/09/2025 Major depressive disorder, recurrent severe without psychotic features (ICD-10 - F33.2) continue current treatment as prescribed by primary psychiatric care provider 02/23/2025 Major depressive disorder, recurrent severe without psychotic features (ICD-10 - F33.2) Continue medication as prescribed by primary psychiatric care provider 02/09/2025 Major depressive disorder, recurrent severe without psychotic features (ICD-10 - F33.2) 01/26/2025 Major depressive disorder, recurrent severe without psychotic features (ICD-10 - F33.2) continue current treatment as prescribed by primary psychiatric care provider 07/15/2024 Generalized anxiety disorder (ICD-10 - F41.1) 07/14/2024 Major depressive disorder, recurrent severe without psychotic features (ICD-10 - F33.2) 03/29/2024 Major depressive disorder, recurrent severe without psychotic features (ICD-10 - F33.2) note from Dr. Gallego- will try stopping lithium for 4-5 days to see if diarrhea improves, if not then unlikely that lithium is the cause; if the diarrhea stops when lithium is stopped, then will discontinue lithium and discuss alternative medication for anti-depressant augmentation (pt denied diarrhea on 03/29/2024) 1. Depression - Patient reports depression rating 3-09/22. - Plan: a. Continue current antidepressant medication. b. Monitor mood and depressive symptoms at next apt. c. Encourage regular physical activity and healthy lifestyle. 2. Anxiety - Patient reports anxiety rating 10/22. - Plan: a. Continue current anxiolytic medication. b. Monitor anxiety levels at next apt. c. Consider CBT referral if anxiety persists/worsen s. 3. Sleep - Patient reports ~6 hours of sleep per night. - Plan: a. Encourage good sleep hygiene practices. b. Monitor sleep patterns at next apt. c. Consider sleep aid if issues persist/worsen. 4. Appetite - Patient reports normal appetite. - Plan: a. Encourage balanced diet. b. Monitor appetite at next apt. 5. Medication Changes - Patient reports Dr. Gallego recommended stopping lithium. - Plan: a. Discontinue lithium per Dr. Gallego's recommendation. 6. Physical Complaints - Patient denies physical complaints. - Plan: a. Continue monitoring for new/worsening symptoms at next apt 7. Safety - Patient denies suicidality, homicidality, psychosis. - Plan: a. Continue assessing safety at follow-ups. b. Encourage reaching out if experiencing concerning symptoms. 04/12/2024 MDD (major depressive disorder), recurrent episode, mild (ICD-10 - F33.0) 1. Depression - Patient rates depression as 4 out of 10. - Continue current antidepressant medication. - Monitor mood and depressive symptoms at follow-up visits. - Encourage regular physical activity and social interactions. 2. Anxiety - Patient rates anxiety as 5 out of 10. - Continue current anxiolytic medication. - Monitor anxiety levels at follow-up visits. - Consider referral to therapist for CBT if anxiety persists or worsens. 3. Sleep - Patient reports approximately 5 hours of sleep per night. - Encourage good sleep hygiene practices. - Monitor sleep patterns at follow-up visits. - Consider sleep aid medication if issues persist or worsen. 4. Appetite - reports appetite as average - Encourage balanced diet and regular meal schedule. - Monitor appetite at follow-up visits. - Consider referral to sales consulting director if issues persist or worsen. 5. Safety - Patient denies thoughts of suicide, self-harm, or harm to others. - Continue to assess safety at each visit. - Encourage reaching out to support system or mental health professional if experiencing harmful thoughts. - Develop safety plan if necessary. 6. Psychosis - No reported hallucinations, delusions, or paranoia. - Continue to monitor for psychotic symptoms at follow-up visits. 05/05/2024 Major depressive disorder, recurrent severe without psychotic features (ICD-10 - F33.2) continue current treatment as prescribed by primary psychiatric care provider. Assessment and plan reviewed with patient Call for problems with medication, side effects or need for dosage change Compliance issues reviewed Discussed the risks/benefits of this medication Discussed medication side effects Return if symptoms worsen Treatment options reviewed. discussed that it can take weeks to see full therapeutic effects of psychotropic medications. discussed when to seek emergency services. discussed crisis prevention hotline [id number]. 1. Depression - Patient reports a depression rating of 4-5 out of 10. - No recent medication changes. - No thoughts of suicide or self-harm. - Plan: a. Continue current antidepressant medication as prescribed by primary psychiatric care provider. b. Monitor depressive symptoms at future appointments. c. Encourage regular physical activity and healthy sleep schedule. 2. Anxiety - Patient reports an anxiety rating of 6-7 out of 10. - No recent medication changes. - No thoughts of harming others. - Plan: a. Continue current anxiolytic medication as prescribed by primary psychiatric care provider. b. Monitor anxiety symptoms at future appointments. 3. Sleep - Patient reports an average of 6 hours of sleep per night. - Sleep duration varies. - Plan: a. Encourage good sleep hygiene, including consistent sleep schedule and relaxing bedtime routine. b. Reassess sleep quality at future appointments. 4. Appetite - Patient reports no significant changes in appetite. - Plan: a. Continue to monitor appetite at future appointments. b. Encourage maintenance of a balanced diet. 5. Physical Complaints - Patient reports no physical complaints. - Plan: a. Continue to monitor for any new physical complaints at future appointments. 6. Other - No hallucinations, delusions, or paranoia reported. 05/19/2024 Major depressive disorder, recurrent severe without psychotic features (ICD-10 - F33.2) Continue esketamine treatments every other week. Continue current medications per Dr Gallego. 06/02/2024 Vitamin D deficiency, unspecified (ICD-10 - E55.9) pt tolerated treatment well Esketamine [facility] [id number] 1 Review patient medical records, any recent test results, last visit summary, etc Yes No1 Time spentPlease enter a number from 0 to 60.2 Greet patient and escort to the treatment room Yes No2 Time spentPlease enter a number from 0 to 60.3 Initial Obtained vital signs Yes No3 Time spentPlease enter a number from 0 to 60.4 Prepare equipment and supplies Yes No4 Time spentPlease enter a number from 0 to 60.5 Reviewed and documented history and medication Yes No5 Time spentPlease enter a number from 0 to 60.6 Evaluate patient's clinical status [relevant history/physica l assessment] and determine readiness/appro priateness of treatment Yes No6 Time spentPlease enter a number from 0 to 60.7 Confirm orders and review plans with staff Yes No7 Time spentPlease enter a number from 0 to 60.8 Ensure appropriate positioning for administration, observe patient administration, ensure patient comfort and safety Yes No8 Time spentPlease enter a number from 0 to 60.9 Obtained vital signs: Assess treatment tolerance Yes NoThis is during the treatment9 Time spentPlease enter a number from 0 to 60.10 Assess the patient response to treatment: Visually and verbally evaluate the patient; review treatment progress with staff [vital signs, patient tolerance, side effects, etc.] Yes NoThis is during the [id number] Time spentPlease enter a number from 0 to 60.11 obtained vital signs: assess treatment tolerance Yes NoThis is during the [id number] Time spentPlease enter a number from 0 to 60.12 At the completion of observation., Reviewed treatment course and assess the patient for clinical stability/disch arge readiness Yes NoThis is during the [id number] Time spentPlease enter a number from 0 to 60.13 Write a prescription or Reviewed RX for next session and submit to pharmacy Yes NoThis is during the [id number] Time spentPlease enter a number from 0 to 60.14 Provide patient education/instr uction/ Yes No14 Time spentPlease enter a number from 0 to 60.15 Coordinate home-going [that is, discharged to escorted transportation] Yes No15 Time spentPlease enter a number from 0 to 60.16 Complete medical record documentation Yes No16 Time spentPlease enter a number from 0 to 60.17 cleaning of room/equipment by clinical staff Yes No17 Time spentPlease enter a number from 0 to 60.18 complete medical record documentation; complete and submit rems patient monitoring form Yes No18 Time spentPlease enter a number from 0 to 60.I attest to the total time spent Before, During and after ecounter was (in Minutes) 53 06/02/2024 Major depressive disorder, recurrent severe without psychotic features (ICD-10 - F33.2) cont Spravato 84mg every 2 weeks. Cont Vilazodone 40mg daily- take with food. pt tolerated treatment well Esketamine [facility] [id number] 1 Review patient medical records, any recent test results, last visit summary, etc Yes No1 Time spentPlease enter a number from 0 to 60.2 Greet patient and escort to the treatment room Yes No2 Time spentPlease enter a number from 0 to 60.3 Initial Obtained vital signs Yes No3 Time spentPlease enter a number from 0 to 60.4 Prepare equipment and supplies Yes No4 Time spentPlease enter a number from 0 to 60.5 Reviewed and documented history and medication Yes No5 Time spentPlease enter a number from 0 to 60.6 Evaluate patient's clinical status [relevant history/physica l assessment] and determine readiness/appro priateness of treatment Yes No6 Time spentPlease enter a number from 0 to 60.7 Confirm orders and review plans with staff Yes No7 Time spentPlease enter a number from 0 to 60.8 Ensure appropriate positioning for administration, observe patient administration, ensure patient comfort and safety Yes No8 Time spentPlease enter a number from 0 to 60.9 Obtained vital signs: Assess treatment tolerance Yes NoThis is during the treatment9 Time spentPlease enter a number from 0 to 60.10 Assess the patient response to treatment: Visually and verbally evaluate the patient; review treatment progress with staff [vital signs, patient tolerance, side effects, etc.] Yes NoThis is during the [id number] Time spentPlease enter a number from 0 to 60.11 obtained vital signs: assess treatment tolerance Yes NoThis is during the [id number] Time spentPlease enter a number from 0 to 60.12 At the completion of observation., Reviewed treatment course and assess the patient for clinical stability/disch arge readiness Yes NoThis is during the [id number] Time spentPlease enter a number from 0 to 60.13 Write a prescription or Reviewed RX for next session and submit to pharmacy Yes NoThis is during the [id number] Time spentPlease enter a number from 0 to 60.14 Provide patient education/instr uction/ Yes No14 Time spentPlease enter a number from 0 to 60.15 Coordinate home-going [that is, discharged to escorted transportation] Yes No15 Time spentPlease enter a number from 0 to 60.16 Complete medical record documentation Yes No16 Time spentPlease enter a number from 0 to 60.17 cleaning of room/equipment by clinical staff Yes No17 Time spentPlease enter a number from 0 to 60.18 complete medical record documentation; complete and submit rems patient monitoring form Yes No18 Time spentPlease enter a number from 0 to 60.I attest to the total time spent Before, During and after ecounter was (in Minutes) 53 06/16/2024 Major depressive disorder, recurrent severe without psychotic features (ICD-10 - F33.2) continue current treatment as prescribed by primary psychiatric care provider. 1. Depression - Patient reports depressed mood. - Plan: a. Continue current treatment plan and monitor progress. b. Encourage regular physical activity and social interactions. 2. Anxiety - Patient reports anxiety. - Plan: a. Continue current treatment plan and monitor progress. b. Encourage practice of relaxation techniques such as deep breathing exercises and mindfulness. 3. Suicidal Ideation and Self-Harm - Patient denies thoughts of suicide or self-harm. - Plan: a. Continue to monitor for any changes in mood or behavior. 4. Homicidal Ideation - Patient denies thoughts of hurting others. - Plan: a. Continue to monitor for any changes in mood or behavior. 5. Psychotic Symptoms - Patient denies experiencing hallucinations, delusions, or paranoia. - Plan: a. Continue to monitor for any changes in mental status. 6. Sleep - Patient reports adequate sleep. - Plan: a. Encourage maintaining a consistent sleep schedule and practicing good sleep hygiene. 7. Appetite - Patient reports no concerns with appetite. - Plan: a. Continue to monitor for any changes in eating habits. 8. Medication Changes - Patient reports no recent changes in medications. - Patient has started taking vitamin D supplement as recommended. - Plan: a. Continue to monitor for any side effects or interactions with current medications. 06/30/2024 Major depressive disorder, recurrent severe without psychotic features (ICD-10 - F33.2) cont Spravato 84mg every 2 weeks. Cont Vilazodone 40mg daily- take with food. continue current treatment as prescribed by primary psychiatric care provider. 1. Depression - Patient reports a depression rating of 3-4 out of 10. - Plan: a. Continue current antidepressant medication. b. Encourage regular physical activity and maintain a healthy sleep schedule. 2. Anxiety - Patient reports an anxiety rating of 5-6 out of 10. - Plan: a. Continue current anxiolytic medication. b. Recommend practicing relaxation techniques, such as deep breathing exercises and mindfulness meditation. 3. Sleep - Patient reports getting 6-7 hours of sleep per night, noting that it depends. - Plan: a. Encourage maintaining a consistent sleep schedule and practice good sleep hygiene. b. Monitor sleep patterns during follow-up appointments. 4. Appetite - Patient reports a normal appetite. - Plan: a. Encourage maintaining a balanced diet and staying hydrated. b. Monitor appetite during follow-up appointments. 5. Medications - Patient reports no new medications. - Plan: a. Continue current medication regimen. b. Review medication list during follow-up appointments for any changes or updates. 6. Physical complaints - Patient reports no new physical complaints. - Plan: a. Encourage reporting any new or worsening physical symptoms during follow-up appointments. b. Coordinate care with primary care provider as needed. 7. Safety - Patient denies thoughts of suicide, self-harm, or hurting others. - Plan: a. Continue to assess for safety concerns during follow-up appointments. 8. Psychosis - Patient denies hallucinations, delusions, or paranoia. - Plan: a. Monitor for any emergence of psychotic symptoms during follow-up appointments. 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 07/29/2024 Major depressive disorder, recurrent severe without psychotic features (ICD-10 - F33.2) 07/29/2024 Generalized anxiety disorder (ICD-10 - F41.1) 08/11/2024 Major depressive disorder, recurrent severe without psychotic features (ICD-10 - F33.2) Continue current treatment as prescribed by primary psychiatric care provider. 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 People living with bipolar disorder who wish to become face important decisions. It is important to discuss the risks and benefits of treatment with your doctor and caregivers. Nettie has been associated with an increased risk of Ebstein's anomaly, a heart valve defect. Even though data suggest that the risk of Ebstein's anomaly from first trimester use of lithium is very low, an ultrasound of the heart is recommended at 16 to 20 weeks of gestation. Nettie levels should be monitored monthly in early and weekly near delivery. Do not stop taking lithium without first speaking to your health care provider. Discontinuing mood stabilizer medications during has been associated with a significant increase in symptom relapse. If an overdose occurs call your doctor or 911. You may need urgent medical care. You may also contact the poison control center at . A specific treatment to reverse the effects of lithium does not exist, but there are treatments to decrease the effects of the medication. Only a doctor can determine if you require treatment. Avoid drinking alcohol or using illegal drugs while you are taking lithium. They may decrease the benefits (e.g., worsen your condition) and increase adverse effects (e.g., sedation) of the medication. Avoid low sodium diets and dehydration because this can increase the risk of lithium toxicity. Avoid over the counter and prescription pain medications that contain nonsteroidal anti-inflammator y medications (NSAIDS) such as ibuprofen (Motrin, Advil) or naproxen (Aleve, Naprosyn) because these medications can increase the risk of toxicity from lithium. Avoid excessive intake of caffeinated beverages, such as coffee, tea, cola or energy drinks, since these may decrease levels of lithium and decrease effectiveness of the medication. Discontinuing caffeine use may increase lithium levels. Consult your health care provider before reducing or stopping caffeine use. What are the possible side effects of lithium? Common side effects Headache Nausea or vomiting Diarrhea Dizziness or drowsiness Changes in appetite Hand tremors Dry mouth Increased thirst Increased urination Thinning of hair or hair loss Acne-like rash Rare/Serious side effects Signs of lithium toxicity include severe nausea and vomiting, severe hand tremors, confusion, vision changes, and unsteadiness while standing or walking. These symptoms need to be addressed immediately with a medical doctor to ensure your lithium level is not dangerously high. In rare cases, lithium may lead to a reversible condition known as diabetes insipidus. If this occurs you would notice a significant increase in thirst and how much fluid you drink and how much you urinate. Talk to your doctor if you notice you are urinating more frequently than usual. Are There Any Risks For Taking Nettie For Long Periods Of Time? Hypothyroidism (low levels of thyroid hormone) may occur with long-term lithium use. Rare kidney problems have been associated with long-term use of lithium. The risk increases with high levels of lithium. Your doctor will monitor your kidney function at routine check-ups to ensure this does not occur. Summary of Black Box Warnings Nettie Toxicity Nettie toxicity is closely related to lithium blood levels and can occur at doses close to therapeutic levels; lithium levels should be monitored closely when starting the medication or if individuals experience side effects of the medication. 09/09/2024 Attention-defic it hyperactivity disorder, predominantly inattentive type (ICD-10 - F90.0) 09/09/2024 MDD (major depressive disorder), recurrent episode, mild (ICD-10 - F33.0) 09/22/2024 Generalized anxiety disorder (ICD-10 - F41.1) 09/22/2024 MDD (major depressive disorder), recurrent episode, mild (ICD-10 - F33.0) continue current treatment as prescribed by primary psychiatric care provider SPRAVATO can cause serious side effects, including: Sedation, dissociation, and respiratory depression. SPRAVATO may cause sleepiness (sedation), fainting, dizziness, spinning sensation, anxiety, or feeling disconnected from yourself, your thoughts, feelings, space and time (dissociation), and breathing problems (respiratory depression and respiratory arrest). Tell your healthcare provider right away if you feel like you cannot stay awake or if you feel like you are going to pass out. Your healthcare provider must monitor you for serious side effects for at least 2 hours after taking SPRAVATO. Your healthcare provider will decide when you are ready to leave the healthcare setting. Abuse and misuse. There is a risk for abuse and misuse with SPRAVATO, which may lead to physical and psychological dependence. Your healthcare provider should check you for signs of abuse, misuse, and dependence before and during treatment. Tell your healthcare provider if you have ever abused or been dependent on alcohol, prescription medicines, or street drugs. Your healthcare provider can tell you more about the differences between physical and psychological dependence in drug addiction. SPRAVATO Risk Evaluation and Mitigation Strategy (REMS). Because of the risks for sedation, dissociation, respiratory depression, and abuse and misuse, SPRAVATO is only available through a restricted program called the SPRAVATO Risk Evaluation and Mitigation Strategy (REMS) Program. SPRAVATO can only be administered at healthcare settings certified in the SPRAVATO REMS Program. Patients treated in outpatient healthcare settings (such as medical offices and clinics) must be enrolled in the program. Increased risk of suicidal thoughts and actions. Antidepressant medicines may increase suicidal thoughts and actions in some people 24 years of age and younger, especially within the first few months of treatment or when the dose is changed. SPRAVATO is not for use in children. Depression and other serious mental illnesses are the most important causes of suicidal thoughts and actions. Some people may have a higher risk of having suicidal thoughts or actions. These include people who have (or have a family history of) depression or a history of suicidal thoughts or actions. How can I watch for and try to prevent suicidal thoughts and actions in myself or a family member? Pay close attention to any changes, especially sudden changes, in mood, behavior, thoughts, or feelings, or if you develop suicidal thoughts or actions. Tell your healthcare provider right away if you have any new or sudden changes in mood, behavior, thoughts, or feelings, or if you develop suicidal thoughts or actions. Keep all follow-up visits with your healthcare provider as scheduled. Call your healthcare provider between visits as needed, especially if you have concerns about symptoms. Tell your healthcare provider or get emergency help right away if you or your family member have any of the following symptoms, especially if they are new, worse, or worry you: thoughts about suicide or dying new or worse depression feeling very agitated or restless trouble sleeping (insomnia) acting aggressive, being angry or violent an extreme increase in activity and talking (angel) suicide attempts new or worse anxiety panic attacks new or worse irritability acting on dangerous impulses other unusual changes in behavior or mood Do not drive, operate machinery, or do anything where you need to be completely alert after taking SPRAVATO. Do not take part in these activities until the next day following a restful sleep. Increased blood pressure. SPRAVATO can cause a temporary increase in your blood pressure that may last for about 4 hours after taking a dose. Your healthcare provider will check your blood pressure before taking SPRAVATO and for at least 2 hours after you take SPRAVATO. Tell your healthcare provider right away if you get chest pain, shortness of breath, sudden severe headache, change in vision, or seizures after taking SPRAVATO. Problems with thinking clearly. Tell your healthcare provider if you have problems thinking or remembering. Bladder problems. Tell your healthcare provider if you develop trouble urinating, such as a frequent or urgent need to urinate, pain when urinating, or urinating frequently at night. The most common side effects of SPRAVATO include: feeling disconnected from yourself, your thoughts, feelings and things around you dizziness nausea feeling sleepy spinning sensation decreased feeling of sensitivity (numbness) feeling anxious lack of energy increased blood pressure vomiting feeling drunk headache feeling very happy or excited If these common side effects occur, they usually happen right after taking SPRAVATO and go away the same day. 10/06/2024 Major depressive disorder, recurrent severe without psychotic features (ICD-10 - F33.2) SPRAVATO can cause serious side effects, including: Sedation, dissociation, and respiratory depression. SPRAVATO may cause sleepiness (sedation), fainting, dizziness, spinning sensation, anxiety, or feeling disconnected from yourself, your thoughts, feelings, space and time (dissociation), and breathing problems (respiratory depression and respiratory arrest). Tell your healthcare provider right away if you feel like you cannot stay awake or if you feel like you are going to pass out. Your healthcare provider must monitor you for serious side effects for at least 2 hours after taking SPRAVATO. Your healthcare provider will decide when you are ready to leave the healthcare setting. Abuse and misuse. There is a risk for abuse and misuse with SPRAVATO, which may lead to physical and psychological dependence. Your healthcare provider should check you for signs of abuse, misuse, and dependence before and during treatment. Tell your healthcare provider if you have ever abused or been dependent on alcohol, prescription medicines, or street drugs. Your healthcare provider can tell you more about the differences between physical and psychological dependence in drug addiction. SPRAVATO Risk Evaluation and Mitigation Strategy (REMS). Because of the risks for sedation, dissociation, respiratory depression, and abuse and misuse, SPRAVATO is only available through a restricted program called the SPRAVATO Risk Evaluation and Mitigation Strategy (REMS) Program. SPRAVATO can only be administered at healthcare settings certified in the SPRAVATO REMS Program. Patients treated in outpatient healthcare settings (such as medical offices and clinics) must be enrolled in the program. Increased risk of suicidal thoughts and actions. Antidepressant medicines may increase suicidal thoughts and actions in some people 24 years of age and younger, especially within the first few months of treatment or when the dose is changed. SPRAVATO is not for use in children. Depression and other serious mental illnesses are the most important causes of suicidal thoughts and actions. Some people may have a higher risk of having suicidal thoughts or actions. These include people who have (or have a family history of) depression or a history of suicidal thoughts or actions. How can I watch for and try to prevent suicidal thoughts and actions in myself or a family member? Pay close attention to any changes, especially sudden changes, in mood, behavior, thoughts, or feelings, or if you develop suicidal thoughts or actions. Tell your healthcare provider right away if you have any new or sudden changes in mood, behavior, thoughts, or feelings, or if you develop suicidal thoughts or actions. Keep all follow-up visits with your healthcare provider as scheduled. Call your healthcare provider between visits as needed, especially if you have concerns about symptoms. Tell your healthcare provider or get emergency help right away if you or your family member have any of the following symptoms, especially if they are new, worse, or worry you: thoughts about suicide or dying new or worse depression feeling very agitated or restless trouble sleeping (insomnia) acting aggressive, being angry or violent an extreme increase in activity and talking (angel) suicide attempts new or worse anxiety panic attacks new or worse irritability acting on dangerous impulses other unusual changes in behavior or mood Do not drive, operate machinery, or do anything where you need to be completely alert after taking SPRAVATO. Do not take part in these activities until the next day following a restful sleep. Increased blood pressure. SPRAVATO can cause a temporary increase in your blood pressure that may last for about 4 hours after taking a dose. Your healthcare provider will check your blood pressure before taking SPRAVATO and for at least 2 hours after you take SPRAVATO. Tell your healthcare provider right away if you get chest pain, shortness of breath, sudden severe headache, change in vision, or seizures after taking SPRAVATO. Problems with thinking clearly. Tell your healthcare provider if you have problems thinking or remembering. Bladder problems. Tell your healthcare provider if you develop trouble urinating, such as a frequent or urgent need to urinate, pain when urinating, or urinating frequently at night. The most common side effects of SPRAVATO include: feeling disconnected from yourself, your thoughts, feelings and things around you dizziness nausea feeling sleepy spinning sensation decreased feeling of sensitivity (numbness) feeling anxious lack of energy increased blood pressure vomiting feeling drunk headache feeling very happy or excited If these common side effects occur, they usually happen right after taking SPRAVATO and go away the same day. 1 Review patient medical records, any recent test results, last visit summary, etc Yes, Time spent 3 2 Greet patient and escort to the treatment room Yes, Time spent 2 3 Initial Obtained vital signs No 4 Prepare equipment and supplies No 5 Reviewed and documented history and medication Yes, Time spent 1 6 Evaluate patient's clinical status [relevant history/physica l assessment] and determine readiness/appro priateness of treatment Yes, Time spent 4 7 Confirm orders and review plans with staff Yes, Time spent 1 8 Ensure appropriate positioning for administration, observe patient administration, ensure patient comfort and safety Yes, Time spent 2 9 Obtained vital signs: Assess treatment tolerance No 10 Assess the patient response to treatment: Visually and verbally evaluate the patient; review treatment progress with staff [vital signs, patient tolerance, side effects, etc.] Yes, Time spent 15 11 obtained vital signs: assess treatment tolerance No 12 At the completion of observation., Reviewed treatment course and assess the patient for clinical stability/disch arge readiness Yes, Time spent 5 13 Write a prescription or Reviewed RX for next session and submit to pharmacy No 14 Provide patient education/instr uction/ Yes, Time spent 5 15 Coordinate home-going [that is, discharged to escorted transportation] No 16 Complete medical record documentation Yes, Time spent 13 17 cleaning of room/equipment by clinical staff No 18 complete medical record documentation; complete and submit rems patient monitoring form No I attest to the total time spent Before, During and after ecounter was (in Minutes) 51 10/20/2024 Major depressive disorder, recurrent severe without psychotic features (ICD-10 - F33.2) continue current treatment as prescribed by primary psychiatric care provider 10/20/2024 Encounter for screening for cardiovascular disorders (ICD-10 - Z13.6) 10/20/2024 Passive suicidal ideations (ICD-10 - R45.851) 11/03/2024 Major depressive disorder, recurrent severe without psychotic features (ICD-10 - F33.2) continue current treatment as prescribed by primary psychiatric care provider continue current treatment as prescribed by primary psychiatric care provider 11/03/2024 Passive suicidal ideations (ICD-10 - R45.851) 11/17/2024 Major depressive disorder, recurrent severe without psychotic features (ICD-10 - F33.2) continue current treatment as prescribed by primary psychiatric care provider 11/17/2024 Generalized anxiety disorder (ICD-10 - F41.1) 11/17/2024 Generalized idiopathic epilepsy and epileptic syndromes, not intractable, 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) 11/03/2024 Generalized anxiety disorder (ICD-10 - F41.1) 10/20/2024 Encounter for screening for depression (ICD-10 - Z13.31) 10/06/2024 Encounter for screening for cardiovascular disorders (ICD-10 - Z13.6) 1 Review patient medical records, any recent test results, last visit summary, etc Yes, Time spent 3 2 Greet patient and escort to the treatment room Yes, Time spent 2 3 Initial Obtained vital signs No 4 Prepare equipment and supplies No 5 Reviewed and documented history and medication Yes, Time spent 1 6 Evaluate patient's clinical status [relevant history/physica l assessment] and determine readiness/appro priateness of treatment Yes, Time spent 4 7 Confirm orders and review plans with staff Yes, Time spent 1 8 Ensure appropriate positioning for administration, observe patient administration, ensure patient comfort and safety Yes, Time spent 2 9 Obtained vital signs: Assess treatment tolerance No 10 Assess the patient response to treatment: Visually and verbally evaluate the patient; review treatment progress with staff [vital signs, patient tolerance, side effects, etc.] Yes, Time spent 15 11 obtained vital signs: assess treatment tolerance No 12 At the completion of observation., Reviewed treatment course and assess the patient for clinical stability/disch arge readiness Yes, Time spent 5 13 Write a prescription or Reviewed RX for next session and submit to pharmacy No 14 Provide patient education/instr uction/ Yes, Time spent 5 15 Coordinate home-going [that is, discharged to escorted transportation] No 16 Complete medical record documentation Yes, Time spent 13 17 cleaning of room/equipment by clinical staff No 18 complete medical record documentation; complete and submit rems patient monitoring form No I attest to the total time spent Before, During and after ecounter was (in Minutes) 51 09/22/2024 Attention-defic it hyperactivity disorder, unspecified type (ICD-10 - F90.9) 09/09/2024 Generalized anxiety disorder (ICD-10 - F41.1) 09/08/2024 Encounter for screening for cardiovascular disorders (ICD-10 - Z13.6) 08/25/2024 Encounter for screening for depression (ICD-10 - Z13.31) 07/29/2024 Attention-defic it hyperactivity disorder, predominantly inattentive type (ICD-10 - F90.0) 07/15/2024 Attention-defic it hyperactivity disorder, predominantly inattentive type (ICD-10 - F90.0) 01/26/2025 Generalized anxiety disorder (ICD-10 - F41.1) 10/21/2024 Passive suicidal ideations (ICD-10 - R45.851) 01/12/2025 Passive suicidal ideations (ICD-10 - R45.851) 12/29/2024 Encounter for screening for cardiovascular disorders (ICD-10 - Z13.6) 12/02/2024 Generalized anxiety disorder (ICD-10 - F41.1) 12/01/2024 Encounter for screening for cardiovascular disorders (ICD-10 - Z13.6) 01/31/2025 Passive suicidal ideations (ICD-10 - R45.851) 02/02/2025 Generalized anxiety disorder (ICD-10 - F41.1) 03/06/2025 Generalized anxiety disorder (ICD-10 - F41.1) 03/24/2025 Passive suicidal ideations (ICD-10 - R45.851) Learning About How to Get Help During a Mental Health Crisis material was published, Suicidal Thoughts and Behavior: Care Instructions material was published, Learning About Making a Suicide Safety Plan material was published 12/30/2024 Generalized anxiety disorder (ICD-10 - F41.1) 12/30/2024 Passive suicidal ideations (ICD-10 - R45.851) 03/06/2025 Attention-defic it hyperactivity disorder, predominantly inattentive type (ICD-10 - F90.0) 02/02/2025 Attention-defic it hyperactivity disorder, predominantly inattentive type (ICD-10 - F90.0) 11/17/2024 Dietary counseling and surveillance (ICD-10 - Z71.3) 12/01/2024 Generalized anxiety disorder (ICD-10 - F41.1) 12/02/2024 Attention-defic it hyperactivity disorder, predominantly inattentive type (ICD-10 - F90.0) 12/29/2024 Dietary counseling and surveillance (ICD-10 - Z71.3) 10/21/2024 Attention-defic it hyperactivity disorder, predominantly inattentive type (ICD-10 - F90.0) 01/26/2025 Passive suicidal ideations (ICD-10 - R45.851) 09/08/2024 Encounter for screening for depression (ICD-10 - Z13.31) 09/09/2024 Generalized idiopathic epilepsy and epileptic syndromes, not intractable, 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) 10/06/2024 Encounter for screening for depression (ICD-10 - Z13.31) 1 Review patient medical records, any recent test results, last visit summary, etc Yes, Time spent 3 2 Greet patient and escort to the treatment room Yes, Time spent 2 3 Initial Obtained vital signs No 4 Prepare equipment and supplies No 5 Reviewed and documented history and medication Yes, Time spent 1 6 Evaluate patient's clinical status [relevant history/physica l assessment] and determine readiness/appro priateness of treatment Yes, Time spent 4 7 Confirm orders and review plans with staff Yes, Time spent 1 8 Ensure appropriate positioning for administration, observe patient administration, ensure patient comfort and safety Yes, Time spent 2 9 Obtained vital signs: Assess treatment tolerance No 10 Assess the patient response to treatment: Visually and verbally evaluate the patient; review treatment progress with staff [vital signs, patient tolerance, side effects, etc.] Yes, Time spent 15 11 obtained vital signs: assess treatment tolerance No 12 At the completion of observation., Reviewed treatment course and assess the patient for clinical stability/disch arge readiness Yes, Time spent 5 13 Write a prescription or Reviewed RX for next session and submit to pharmacy No 14 Provide patient education/instr uction/ Yes, Time spent 5 15 Coordinate home-going [that is, discharged to escorted transportation] No 16 Complete medical record documentation Yes, Time spent 13 17 cleaning of room/equipment by clinical staff No 18 complete medical record documentation; complete and submit rems patient monitoring form No I attest to the total time spent Before, During and after ecounter was (in Minutes) 51 09/22/2024 Dietary counseling and surveillance (ICD-10 - Z71.3) 11/03/2024 Attention-defic it hyperactivity disorder, predominantly inattentive type (ICD-10 - F90.0) 11/03/2024 Encounter for screening for cardiovascular disorders (ICD-10 - Z13.6) 11/17/2024 Encounter for screening for cardiovascular disorders (ICD-10 - Z13.6) 09/09/2024 Encounter for screening for depression (ICD-10 - Z13.31) 09/22/2024 Generalized idiopathic epilepsy and epileptic syndromes, not intractable, 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) 10/21/2024 Generalized idiopathic epilepsy and epileptic syndromes, not intractable, 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) 12/29/2024 Generalized anxiety disorder (ICD-10 - F41.1) 12/02/2024 Generalized idiopathic epilepsy and epileptic syndromes, not intractable, 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) 12/01/2024 Generalized idiopathic epilepsy and epileptic syndromes, not intractable, 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) 02/02/2025 Passive suicidal ideations (ICD-10 - R45.851) 03/06/2025 Passive suicidal ideations (ICD-10 - R45.851) 12/01/2024 Dietary counseling and surveillance (ICD-10 - Z71.3) 12/02/2024 Passive suicidal ideations (ICD-10 - R45.851) 12/29/2024 Attention-defic it hyperactivity disorder, predominantly inattentive type (ICD-10 - F90.0) 10/21/2024 Encounter for screening for cardiovascular disorders (ICD-10 - Z13.6) 09/22/2024 Encounter for screening for cardiovascular disorders (ICD-10 - Z13.6) 09/09/2024 Encounter for screening for cardiovascular disorders (ICD-10 - Z13.6) 10/20/2024 Dietary counseling and surveillance (ICD-10 - Z71.3) 11/03/2024 Dietary counseling and surveillance (ICD-10 - Z71.3) 10/21/2024 Encounter for screening for depression (ICD-10 - Z13.31) 12/29/2024 Generalized idiopathic epilepsy and epileptic syndromes, not intractable, 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 Depression - PHQ-9: 8 - Patient reports depression rating of 4-5/10. - Plan: a. Continue current antidepressant medication regimen. b. Encourage regular physical activity and healthy sleep schedule. 2. Anxiety - KENYON-7: 7 - Patient reports anxiety rating of 5-6/10. - Plan: a. Continue current anxiolytic medication regimen. b. Recommend practicing relaxation techniques like deep breathing and mindfulness meditation. 3. Suicidal Ideation - patient denied SI - Plan: a. patient is aware of crisis hotline number and when to seek emergency services. 4. Sleep - Patient reports 6-7 hours of sleep per night. - Plan: a. Encourage consistent sleep schedule and good sleep hygiene. b. Consider sleep study if issues persist or worsen. 5. Appetite - Patient reports adequate appetite. - Plan: a. Encourage balanced diet and hydration. 6. Physical Complaints - No new physical complaints reported. - Plan: a. Continue monitoring for changes in physical health during follow-ups. 07/28/2024 Other 1. Depression - PHQ-9: 10 - Patient rates depression as 5/10. - No recent changes in medication. - Continue current antidepressant therapy. - Monitor mood and depressive symptoms at follow-up visits. - Encourage regular physical activity and healthy sleep schedule. 2. Anxiety - KENYON-7: 9 - Patient rates anxiety as 6/10. - No recent changes in medication. - Continue current anxiolytic therapy. - Monitor anxiety levels at follow-up visits. - Encourage relaxation techniques (deep breathing exercises, mindfulness meditation). 3. Sleep - Patient reports 5-6 hours of sleep per night, with variability. - Encourage consistent sleep schedule and good sleep hygiene. - Monitor sleep duration and quality at follow-up visits. - Consider evaluation for sleep disorders if issues persist or worsen. 4. Safety - Patient denies thoughts of suicide, self-harm, or harm to others. - Patient denies hallucinations, delusions, or paranoia. - Continue to assess safety and mental status at follow-up visits. - Encourage patient to reach out to support system or mental health professional if experiencing thoughts of self-harm or harm to others. 5. Physical Health - Patient reports no new physical complaints. - Continue to monitor overall health and well-being at follow-up visits. - Encourage healthy lifestyle, including regular exercise and balanced diet. 08/11/2024 Other 1. Depression - Patient rates depression at 4-510. - Plan: a. Continue current antidepressant medication regimen. b. Encourage regular physical activity and healthy diet. 2. Anxiety - Patient rates anxiety at 5-11/22. - Plan: a. Continue current anxiolytic medication regimen. b. Recommend practicing relaxation techniques, such as deep breathing exercises and mindfulness meditation. 3. Sleep - Patient reports 5 hours of sleep per night. - Plan: a. Encourage establishing a regular sleep schedule and practicing good sleep hygiene. b. Consider short-term sleep aid if sleep issues persist at next follow-up appointment. 4. Appetite - Patient reports normal appetite. - Plan: a. Encourage maintaining a balanced diet. b. Monitor for changes in appetite. 5. Medication Review - No new medications or changes reported. - Plan: a. Continue current medication regimen. b. Monitor for side effects or changes in efficacy. 6. Physical Complaints - No new physical complaints reported. - Plan: a. Encourage reporting of new or worsening physical symptoms at future appointments. 7. Safety Assessment - Patient denies thoughts of suicide, self-harm, or harm to others. - Patient denies hallucinations, delusions, or paranoia. - Plan: a. Continue monitoring mental status and safety at each appointment. b. Encourage reaching out to support system or emergency services if experiencing thoughts of self-harm or harm to others. 08/25/2024 Other 1. Depression PHQ-9: 7 - Patient reports depression severity of 4-5/10. - Sleep is impaired, with 4-5 hours of sleep reported. - Appetite is reported as normal. - No suicidal ideation, hallucinations, delusions, or paranoia reported. - Plan: a. Continue current medication regimen. b. Monitor for changes in depressive symptoms. c. Encourage adherence to sleep hygiene practices. 2. Anxiety KENYON-7: 6 - Patient reports anxiety severity of 5-6/10. - No specific anxiety symptoms or triggers discussed. - No reported homicidal ideation. - Plan: a. Continue current treatment approach. b. Monitor for changes in anxiety symptoms. 3. Medication Management - No new medications reported. - Plan: a. Continue current medication regimen. 4. Physical Complaints - No new physical complaints reported. Note: Specific medications and interventions were not mentioned in the original text. 09/08/2024 Other Major Depressive Disorder Assessment: Patient reports current depression severity of 4-5 out of 10. He is currently receiving esketamine (Spravato) treatments every 2 weeks and taking vilazodone 40 mg daily for depression management. Sleep is variable, ranging from 5-8 hours per night. Appetite is reported as normal. Patient denies suicidal ideation, homicidal ideation, hallucinations, delusions, or paranoia. Plan: - Administer esketamine 84 mg as scheduled - Continue vilazodone 40 mg PO daily - Continue Spravato treatments every 2 weeks - Patient expressed understanding of risks and benefits of esketamine treatment - Follow-up appointment scheduled with primary psychiatric care provider, HUMBLE aNm, on 09/09/2024 Anxiety Disorder Assessment: Patient reports current anxiety severity of 5 out of 10. Currently managed with ongoing medication regimen. Plan: - Continue current medication regimen - Monitor anxiety symptoms at follow-up appointments The note is transcribed using speech recognition software. It is a reflection of a visit with the patient. It might have some inaccuracy, including medication names and transcribing errors, though efforts have been made to correct them. 09/09/2024 Darrell Hernandez is a patient with a history of epilepsy and depression, currently undergoing Spravato treatment every 2 weeks, presenting with concerns about memory issues, coordination problems, and anxiety. Major Depressive DisorderAssessment : Patient has been receiving Spravato treatment every 2 weeks for approximately 2 years, with variable effectiveness. They report that sometimes the treatment helps, while other times it feels ineffective. The patient is also taking vilazodone for anxiety and depression management. Despite ongoing treatment, the patient expresses feelings of anxiety and lack of direction in life.Plan:- Continue Spravato treatment every 2 weeks- Continue vilazodone 40 mg daily- Follow up in 6 weeks to reassess treatment efficacy and discuss potential medication changes if needed- Offered referral for therapy if desired AnxietyAssessment: Patient reports kind of high anxiety levels, expressing concerns about lack of direction in life and feeling like they are running out of time. 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 They are currently taking lacosamide 200 mg twice daily. The last reported seizure was in October 2020 during an induced episode for diagnostic purposes. Plan:- Continue lacosamide 200 mg twice daily Coordination Issues and MemoryAssessment: Patient reports new onset of coordination problems and memory issues. These symptoms do not appear to be related to Spravato treatments. Given the patient's history of epilepsy, further neurological evaluation may be warranted.Plan:- Recommend follow-up with neurologist, Dr. Tung Madison at [facility], to discuss recent coordination issues and memory concerns Substance UseAssessment: Patient reports occasional use of cannabis gummies, approximately once or twice a week, with sometimes weeks between use. No other substance use reported.Plan:- Continue to monitor cannabis use and its potential impact on overall mental health- Discuss any concerns about substance use at follow-up appointment 09/22/2024 Other Yi, a male patient with major depressive disorder, presents for Spravato 84 mg administration, reporting depression at 5/10 and anxiety at 6/10. Major Depressive Disorder Assessment: Patient continues to experience symptoms of major depressive disorder, with current self-reported depression severity of 5 out of 10. He is undergoing Spravato treatment, which suggests previous inadequate response to conventional antidepressant therapies. Patient denies suicidal thoughts, hallucinations, delusions, or paranoia. Sleep is reportedly 5-6 hours per night, with no changes in appetite noted. No medication changes or side effects reported. Plan: - Administer Spravato 84 mg as scheduled - Continue current medications as prescribed by primary psychiatric care provider - Patient expressed understanding of risks and benefits of Spravato treatment - Patient instructed not to drive after Spravato administration - Next Spravato treatment scheduled for 10-06-24 - Follow-up appointment with primary psychiatric care provider, Lolita, on 10-21-2024 Anxiety Assessment: Patient reports current anxiety level of 6 out of 10. No specific anxiety-related symptoms or triggers were discussed in this encounter. Plan: - Continue monitoring anxiety symptoms - Address anxiety further at follow-up appointment with primary psychiatric care provider The note is transcribed using speech recognition software. It is a reflection of a visit with the patient. It might have some inaccuracy, including medication names and transcribing errors, though efforts have been made to correct them. 10/06/2024 Darrell Hernandez is a 29-year-old male presenting for Spravato treatment for treatment-resistan t depression, reporting increased depressive symptoms following a recent breakup. Treatment-resistan t depressionAssessme nt: Patient continues to receive Spravato treatments every 2 weeks for treatment-resistan t depression. He reports treatments have been going well overall, but is experiencing increased depressive symptoms today, rating his depression as 6/10. This exacerbation appears to be situational, related to a recent breakup with a partner of several months. Despite the current increase in symptoms, the patient denies suicidal ideation, homicidal ideation, thoughts of self-harm, hallucinations, paranoia, or delusions. Sleep is reported as overall fine, with approximately 7 hours per night, though not always restful. Appetite is good. The patient denies any side effects from Spravato treatments, except for some fatigue post-treatment, and is otherwise tolerating the medication well.Plan:- Continue Spravato treatments every 2 weeks for treatment-resistan t depression- Continue vilazodone 40 mg PO daily for anxiety- Follow up with primary provider for ongoing management 1 Review patient medical records, any recent test results, last visit summary, etc Yes, Time spent 3 2 Greet patient and escort to the treatment room Yes, Time spent 2 3 Initial Obtained vital signs No 4 Prepare equipment and supplies No 5 Reviewed and documented history and medication Yes, Time spent 1 6 Evaluate patient's clinical status [relevant history/physica l assessment] and determine readiness/appro priateness of treatment Yes, Time spent 4 7 Confirm orders and review plans with staff Yes, Time spent 1 8 Ensure appropriate positioning for administration, observe patient administration, ensure patient comfort and safety Yes, Time spent 2 9 Obtained vital signs: Assess treatment tolerance No 10 Assess the patient response to treatment: Visually and verbally evaluate the patient; review treatment progress with staff [vital signs, patient tolerance, side effects, etc.] Yes, Time spent 15 11 obtained vital signs: assess treatment tolerance No 12 At the completion of observation., Reviewed treatment course and assess the patient for clinical stability/disch arge readiness Yes, Time spent 5 13 Write a prescription or Reviewed RX for next session and submit to pharmacy No 14 Provide patient education/instr uction/ Yes, Time spent 5 15 Coordinate home-going [that is, discharged to escorted transportation] No 16 Complete medical record documentation Yes, Time spent 13 17 cleaning of room/equipment by clinical staff No 18 complete medical record documentation; complete and submit rems patient monitoring form No I attest to the total time spent Before, During and after ecounter was (in Minutes) 51 10/20/2024 Other Major Depressive Disorder with Suicidal Ideation Assessment: Patient reports depression severity of 7/10 and endorses passive suicidal ideation without plan or intent. Sleep is inadequate at 5-6 hours per night, and appetite is reported as inadequate. No hallucinations, delusions, or paranoia are present. Patient demonstrates understanding of risks and benefits of sporadic Spravato treatment and has a suicide crisis prevention plan in place, including knowledge of the [employer] suicide hotline. Plan: - Administer Spravato as scheduled - Continue current medications as prescribed by primary psychiatric care provider - Patient instructed not to drive after Spravato administration - Follow-up appointment with primary psychiatric care provider Lolita scheduled for 10-21-2024 - Next Spravato treatment scheduled for 11-03-2024 Anxiety Assessment: Patient reports anxiety severity of 7/10. KENYON-7: 6 - Follow-up appointment with primary psychiatric care provider Lolita scheduled for 10-21-2024 The note is transcribed using speech recognition software. It is a reflection of a visit with the patient. It might have some inaccuracy, including medication names and transcribing errors, though efforts have been made to correct them. 10/21/2024 Other Yi Hernandez, male patient with history of seizures, presenting with depressed mood, anxiety, and passive suicidal ideation following a recent relationship breakup. Major Depressive Disorder with Anxiety Assessment: Patient reports worsening mood and increased anxiety following a recent relationship breakup. He endorses passive suicidal ideation without plans or intent, consistent with previous presentations. Sleep disturbances are noted. The patient expresses feelings of stagnation and lack of direction in life. Current treatment with vilazodone has not resulted in significant improvement. Patient is engaged in ongoing therapy. Plan: - Continue vilazodone (current dose and frequency to be maintained) - Continue Spravato treatments every other week - Discussed option to increase frequency to weekly if needed - Continue psychotherapy with Melanie - Follow-up appointment scheduled in 6 weeks - Reassess medication efficacy and consider potential changes at next visit if no significant improvement Passive Suicidal Ideation Assessment: Patient endorses passive suicidal thoughts, which are reported to be consistent with previous presentations. No active plans or intent are identified. Plan: - Monitor suicidal ideation - Continue current treatment approach with medication and therapy - Reassess at follow-up appointment 11/03/2024 Other Major Depressive Disorder with Anxiety Assessment: Patient reports ongoing depression, rating it as 7-8 out of 10, and anxiety rated as 6 out of 10. Current symptoms include poor sleep and passive suicidal ideation without plan or intent. Patient has a suicide crisis safety plan in place and is aware of the crisis prevention hotline number 988. No reports of hallucinations, delusions, or paranoia. Patient expressed interest in Spravato treatment. Plan: - Continue current psychiatric medications as prescribed by primary psychiatric care provider - Discussed risks and benefits of Spravato treatment - Advised patient not to drive after Spravato administration if treatment is initiated - Follow-up appointment scheduled with Lolita on 12/02/2024 - Next Spravato treatment scheduled for 11/17/2024 Passive Suicidal Ideation Assessment: Patient reports passive suicidal ideation without plan or intent. A suicide crisis safety plan is in place, and the patient is aware of the crisis prevention hotline number 988. Patient denies thoughts of wanting to hurt himself or others. Plan: - Maintain suicide crisis safety plan - Reinforce use of crisis prevention hotline (988) if needed The note is transcribed using speech recognition software. It is a reflection of a visit with the patient. It might have some inaccuracy, including medication names and transcribing errors, though efforts have been made to correct them. 11/17/2024 Other Major Depressive Disorder Assessment: Patient reports current depression severity as 5-6 out of 10. Denies suicidal ideation, homicidal ideation, hallucinations, delusions, or paranoia. Sleep is approximately 6 hours per night. Appetite is normal. No reported medication side effects or recent medication changes. Plan: - Patient understands 988 suicide hotline - Next follow-up appointment with primary psychiatric care provider Stacy scheduled for 12/02/2024 - continue medications as prescribed by Stacy. Generalized Anxiety Disorder Assessment: Patient reports current anxiety severity as 5-6 out of 10. Denies suicidal ideation, homicidal ideation, hallucinations, delusions, or paranoia. Sleep is approximately 6 hours per night. Appetite is normal. No reported medication side effects or recent medication changes. Plan: - Next follow-up appointment with primary psychiatric care provider Stacy scheduled for 12/02/2024 - continue medications as prescribed by Stacy. The note is transcribed using speech recognition software. It is a reflection of a visit with the patient. It might have some inaccuracy, including medication names and transcribing errors, though efforts have been made to correct them. 12/01/2024 Darrell Longoria presents for Spravato administration for treatment of depression, reporting current depression at 6/10 and anxiety at 3/10, with passive suicidal ideation. Major Depressive Disorder Assessment: Patient reports current depression severity as 6 out of 10. Passive suicidal ideation is present without plan or intent. Sleep is reduced to 5-6 hours per night. Appetite is reported as normal. PHQ-9 score is 10, indicating moderate depression. Patient is undergoing Spravato treatment for depression management. Plan: - Continue Spravato administration for depression treatment - Maintain current medications as prescribed by Lolita - Follow-up appointment with primary psychiatric care provider Lolita scheduled for 12/02/2024 - Next phlebotomy treatment scheduled for 11/15/2024 or 12/15/2024 - Crisis prevention hotline number and safety plan in place - Mental health crisis plan completed, patient understands when to seek emergency services or call 911 Anxiety Assessment: Patient reports current anxiety level as 3 out of 10. KENYON-7 score is 1, suggesting minimal anxiety symptoms at present. Plan: - Continue current treatment approach - Monitor anxiety levels at follow-up appointments Suicidal Ideation Assessment: Patient reports passive suicidal ideation without plan or intent. A safety plan is in place, and the patient is aware of crisis prevention resources. Plan: - Maintain safety plan - Reinforce use of crisis prevention hotline if needed - Continue to assess for suicidal ideation at follow-up appointments The note is transcribed using speech recognition software. It is a reflection of a visit with the patient. It might have some inaccuracy, including medication names and transcribing errors, though efforts have been made to correct them. 12/02/2024 Darrell Hernandez presents with ongoing depression following a breakup, memory issues, anxiety, and a history of seizures, currently undergoing Spravato treatment and experiencing passive suicidal ideation. Major Depressive Disorder Assessment: Patient continues to struggle with depression following a recent breakup. Currently undergoing Spravato treatments every other week, which provide short-term relief on treatment days. The duration of effect is unclear. Patient reports passive suicidal ideation without plan or intent. Sleep disturbances and fatigue are present, with the patient describing a cycle of staying up late and napping during the day. Previous trials of multiple antidepressants (Prozac, Wellbutrin, Celexa, Zoloft, Lexapro, Qelbree) have been unsuccessful. Currently on vilazodone 40mg daily. Plan: - Consider transitioning Spravato treatments to weekly sessions - Initiate switch from vilazodone to Trintellix: - Week 1: Start Trintellix 5mg daily, continue vilazodone 40mg daily - Week 2: Increase Trintellix to 10mg daily, decrease vilazodone to 20mg daily - Week 3: Continue Trintellix 10mg daily, decrease vilazodone to 10mg daily - Week 4: Continue Trintellix 10mg daily, discontinue vilazodone - Provide 4-week supply of Trintellix samples - Obtain insurance approval for Trintellix - Follow-up appointment in 4 weeks to assess response and consider increasing Trintellix to 20mg if needed - Order labs to rule out medical causes Anxiety Assessment: Patient reports ongoing anxiety, feeling always behind in life. Experiences a sense of dread, possibly indicative of panic attacks, triggered by stress and anxiety. Work-related stress is a contributing factor, with a 40-minute commute and work taking up more time than desired. Plan: - Monitor response to Trintellix, which may also address anxiety symptoms - Consider exploring stress management techniques at follow-up appointment Seizure Disorder Assessment: Patient has a history of seizures, with the last induced seizure occurring during hospital testing. Currently on lacosamide and levetiracetam (Keppra) for seizure management. No recent seizure activity reported. Plan: - Continue lacosamide - Continue levetiracetam (Keppra) - Monitor for any seizure activity - Consider consulting with neurologist regarding potential Vagus Nerve Stimulator (VNS) as a treatment option Memory Issues Assessment: Patient reports improvement in memory issues, currently rating them as 3/10 compared to previous 4-5/10. Important information still occasionally slips by. Short-term memory issues may be related to Spravato treatments but are not expected to persist long-term. Plan: - Continue monitoring memory issues - Reassess at follow-up appointment 12/29/2024 Other 1. Major Depressive Disorder - Patient rates depression at -01/22. - Passive suicidal ideation present without plan or intent. - Sleep disturbance noted with only 4 hours of sleep per night, reported as abnormal. - Plan: a. continue medications as prescribed by Stacy garcia. Follow-up appointment with primary psychiatric care provider Lolita scheduled for 12/30/2024. c. Patient expressed understanding of crisis prevention, suicide hotline, and when to seek emergency services. 2. Generalized Anxiety Disorder - Patient rates anxiety at 5-11/22. - Patient denies hallucinations, delusions, or paranoia. 3. Sleep Disturbance - Patient reports only 4 hours of sleep per night, noted as abnormal. 4. Spravato Treatment - Patient presents post-Spravato administration. - Plan: a. next spravato treatment scheduled for 01/12/2025. b. Patient expressed understanding of risks, benefits, and driving precautions after administration. 12/30/2024 Other Yi Hernandez presents with worsening depression, anxiety, and sleep disturbances, reporting recent suicidal ideation without intent. Major Depressive Disorder with Anxiety Assessment: Patient reports a recent exacerbation of depressive symptoms, including low mood and sleep disturbances. Anxiety symptoms are also present. Patient experienced suicidal ideation with intrusive thoughts about methods, but denies current intent or plan. Sleep pattern is disrupted, with difficulty initiating sleep until around 2 AM and daytime somnolence. Patient has been hesitant to start new medication due to vacation plans and worsening symptoms. Currently undergoing esketamine treatments and engaged in therapy every other week. Plan: - Taper off vilazodone 20 mg PO daily - Prescription sent for 20 mg tablets with instructions to take 2 tablets, then 1 tablet, then half tablet - Continue switch to Trintellix - Continue current esketamine treatment schedule - Continue therapy sessions every other week - Follow up in 4 weeks - Option to utilize walk-in clinic or see Saleem for urgent concerns Insomnia Assessment: Patient reports difficulty initiating sleep, not falling asleep until around 2 AM. This is accompanied by excessive daytime sleepiness. Sleep disturbances have worsened over the past 1-2 weeks. Plan: - Monitor sleep patterns - Reassess sleep quality at follow-up appointment 01/26/2025 Other 1. Major Depressive Disorder - Patient rates depression at 7/10. - Passive suicidal ideation present without plan or intent. - Sleep reported as 5 hours last night. - Patient denies hallucinations or paranoia. - Patient reports feeling irritable. - Plan: a. Continue Spravato treatment as scheduled for 02-01-2025. b. Continue medications as prescribed by primary psychiatric care provider Stacy. c. Follow-up appointment with Stacy scheduled for 01-27-2025. 2. Anxiety - Patient rates anxiety at -11/22. - No major adjustments since last visit. - Plan: a. Continue current medication regimen. 3. Passive Suicidal Ideation - Patient reports passive suicidal ideation without plan or intent. - Patient is aware of the crisis prevention hotline. - Patient assumes a safety plan is in place. - Plan: a. Monitor suicidal ideation. b. Reinforce use of crisis prevention hotline if needed. 4. Sleep Disturbance - Patient reports 5 hours of sleep last night. - encourage sleep hygiene. - discuss sleep disturbance at follow up apt brandee/ Stacy. 01/31/2025 Other Nettie material was printed, Cariprazine material was printed 1. Major Depressive Disorder with Suicidal Ideation - Patient rates depression at 8 or 9/10. - Reports suicidal thoughts throughout the day without specific plan or intent. - Experiences episodes of uncontrollable crying. - Increased suicidal ideation correlates with Trintellix initiation. - Plan: a. Decrease Trintellix to 10 mg daily. b. Start Nettie 300 mg at night. c. Start Vraylar 1.5 mg daily. d. Provide crisis prevention hotline number (540) and instruct to call 911 if needed. e. patient's current therapist is on vacation, patient scheduled to see Linda tripathi walk-in therapist today) f. follow up with primary psychiatric care provider, Stacy on 02/02/2025. 2. Possible Bipolar Disorder - Patient's history suggests possible bipolar disorder. - Reports periods of significant irritability, particularly at work. - Denies clear manic episodes. - Plan: a. patient does not meet diagnostic criteria for hypomanic/manic episodes. b. history of ineffectiveness of SSRI/SNRI and Spravato c. current irritability and increased SI with Trintellix d. start vrayalar 1.5 mg e. start lithium 300 mg HS. Follow-up: - Schedule follow-up appointment with Lolita in 2 days. - Plan: a. Reassess need for Spravato treatment at next visit b. Monitor for side effects and effectiveness of new medication regimen. c. Attend scheduled therapy appointment today at 1 PM with Kemi. 02/02/2025 Other Yi Hernandez, male patient with history of depression and suicidal ideation, presenting with recent improvement in mood but ongoing sleep difficulties and anxiety. Major Depressive Disorder with Suicidal Ideation Assessment: Patient reports improvement in mood over the past few days following medication adjustments. Suicidal thoughts have decreased but are still present, described as always there but less intense than before. Sleep disturbances persist, with difficulty initiating sleep. Anxiety levels have increased slightly. Recent medication changes include decreasing Trintellix to 10 mg, initiating lithium, and continuing Vraylar. Last Spravato treatment was on the . Plan: - Taper and discontinue Trintellix - Continue 10 mg for a few more days, then discontinue if feeling stable - Continue lithium - Vraylar - Switch administration time to morning - Monitor for restlessness; if persists after one week but mood is stable, consider discontinuation - Spravato - Initiate process for reapproval - Consider increasing frequency to weekly treatments - Follow up in 3-4 weeks Insomnia Assessment: Patient reports difficulty initiating sleep, possibly related to medication side effects. Vraylar may be contributing to restlessness, affecting sleep onset. Plan: - Switch Vraylar administration to morning - Monitor sleep patterns and report any changes at follow-up Anxiety Assessment: Patient reports slightly increased anxiety levels. This may be related to recent medication changes or ongoing stressors. Plan: - Monitor anxiety levels with medication adjustments - Discuss at follow-up appointment Medical Decision Making Yi Hernandez is a male patient with a history of depression and suicidal thoughts, presenting with improving mood but persistent anxiety and sleep disturbances. The patient's mood has shown improvement with the reduction of Trintellix to 10mg, though suicidal thoughts persist at a lower intensity. The decision to taper off Trintellix is based on the patient's positive response to the dose reduction and the addition of lithium and Vraylar to the treatment regimen. The switch of Vraylar to morning dosing is intended to address potential restlessness, with a plan to reassess its efficacy and side effects after one week. The consideration of restarting Spravato treatments on a weekly basis reflects the ongoing management of treatment-resistan t depression. The patient's report of increased anxiety levels and sleep disturbances suggests a need for continued monitoring and potential adjustments to the medication regimen. 02/09/2025 Other Continue medications as prescribed under current provider Declines need for refill today Encouraged to discuss sleep concerns with Stacy at next visit or earlier if needed Continue esketamine treatments as scheduled -Assessment and treatment plan reviewed with patient. -Compliance with treatment plan importance discussed. -Discussed the risks/benefits of this medication -Discussed medication side effects. -Contact office if symptoms worsen. -Discussed that it can take up to 6-8 weeks to see full therapeutic effects of psychotropic medications. -Crisis prevention hotline 988. 02/23/2025 Other 1. Major Depressive Disorder - Patient rates depression at 5/10. - Sleep disturbances present, reporting only 3-4 hours of sleep last night. - Appetite has increased. - Patient denies suicidal ideation or thoughts of harming himself or others. - Plan: a. Administer Spravato as scheduled. b. Patient expressed understanding of risks and benefits of Spravato treatment. c. Patient expressed understanding of not driving after administration. d. Follow-up appointment with primary psychiatric care provider Stacy scheduled for 03/06/2025. e. Next Spravato treatment scheduled for 03/09/2025. f. advised to take vraylar at night. 2. Anxiety - Patient rates anxiety at 5/10. - Plan: a. Continue current management. 03/06/2025 Other Yi Hernandez presents with ongoing depression and suicidal ideation, currently undergoing Spravato treatments and medication management. Major Depressive Disorder with Suicidal Ideation Assessment: Patient reports persistent suicidal thoughts without plan or intent. Recently resumed Spravato treatments after a brief interruption, currently administered every other week. Patient has not noticed significant improvement with the reintroduction of Spravato or the addition of Vraylar. Patient is currently taking lithium 300 mg at bedtime. Recent medication changes include discontinuation of Trintellix (vortioxetine). Plan: - Continue Spravato treatments every other week - Consider appealing insurance for weekly Spravato treatments - Continue lithium 300 mg capsule at bedtime - Provide samples of [employer] (aripiprazole) - Discuss potential for GeneSight testing - Follow up to assess response to current treatment regimen Insomnia Assessment: Patient reports improved sleep since discontinuing Trintellix. Current sleep pattern involves falling asleep around midnight and waking around 7 AM, which appears to be an improvement from the severe sleep disturbances experienced while on Vraylar. Plan: - Monitor sleep patterns and quality - Continue current medication regimen, which appears to have positively impacted sleep Medical Decision Making Yi Hernandez is a patient with a history of depression and suicidal ideation, currently undergoing Spravato treatments and medication management. The patient recently restarted Spravato treatments on the , currently administered every other week. Despite the resumption of Spravato and the addition of Vraylar, the patient reports no significant improvement in symptoms. The patient discontinued Trintellix and is currently on lithium 300mg. Suicidal thoughts persist but without plan or intent. Sleep disturbances have improved since discontinuing Trintellix, with the patient now sleeping from midnight to 7 AM. The clinician is considering appealing for more frequent Spravato treatments and discussed GeneSight testing to guide future medication choices. The complexity of the case is evident in the multiple medication trials and ongoing symptom management, with careful consideration of the patient's response to various interventions. 03/09/2025 Other Major Depressive DisorderAssessment : Patient reports depression symptoms as about the same, indicating no improvement sincne last discussed, with passive suicidal ideation occurring occasionally. Patient describes having some good days and some bad days. Depression severity is rated at 5 out of 10. Recent improvement noted in the last couple of days due to accomplishing planned activities, but generally reports not a whole lot to look forward to. Sleep disturbances persist, with poor sleep quality reported last night. Recent onset of excessive eating behavior noted.Plan:- Consider increasing frequency of Spravato treatments from every other week to weekly- Patient to confirm logistics for weekly treatments and message clinician if able to proceed- Continue current antidepressant medication regimen Anxiety DisorderAssessment : Patient reports anxiety as a little bit better, rating it at 4-5 out of 10. No specific triggers or improvements noted.Plan:- Continue current anxiety medication regimen Spravato TreatmentAssessmen t: Patient reports diminished efficacy of recent Spravato treatments, stating the last couple times it felt like it hasn't really done a whole lot and I don't really feel much of an effect while I'm here. Patient questions potential tolerance development. No side effects reported.Plan:- Discuss increasing Spravato treatment frequency to weekly- Coordinate with scheduling team to arrange weekly treatments if patient confirms ability to attend- Monitor efficacy of increased treatment frequency if implemented Medical Decision MakingYi Hernandez is a patient with a history of depression and anxiety presenting for follow-up of Spravato treatment. The patient reports persistent depressive symptoms with passive suicidal ideation, rating depression at 5/10 and anxiety at 4-5/10. Recent improvement in depression is noted, possibly due to engaging in planned activities. The effectiveness of Spravato treatments is questioned, as the patient reports feeling less effect during recent sessions, raising the possibility of tolerance development. Sleep disturbances and binge eating behaviors are also reported. Given the persistent symptoms and potential decreased efficacy of current treatment, increasing Spravato treatment frequency from every other week to weekly is being considered. The decision to increase frequency is based on his report of symptoms, treatment response, and logistical feasibility. The potential benefits of increased treatment frequency are weighed against his ability to manage more frequent appointments. 03/16/2025 Other Major Depressi ve Disorder with Suicidal IdeationAssessment : Patient reports worsening depression symptoms. Suicidal ideation persist but remain passive, though recently experienced intrusive thoughts about using box cutters at work. He denies a specific plan or intent of hurting himself. Sleep disturbances persist, with difficulty falling asleep and frequent awakenings. Binge eating episodes have increased slightly. Anxiety levels have also risen, particularly related to school and loan concerns. Current treatment with Spravato does not appear to be providing adequate symptom relief.Plan:- Continue Spravato treatment- Consider introducing ketamine for treatment-resistan t depression- Schedule follow-up appointment to reassess depression symptoms and treatment efficacy 03/23/2025 Other Major Depressive Disorder with Suicidal IdeationAssessment : Patient reports depression severity fluctuating between 4-5 and 7 out of 10. Suicidal thoughts persist, described as intrusive rather than passive, occurring on days when depression is more severe (around 7/10). No current plans or intent reported. History of seizures in early 2019 or 2020, last induced during diagnostic testing.Plan:- Consider exploring TMS as a treatment option- Consult with neurologist regarding seizure history and TMS feasibility- Continue current antidepressant regimen- Monitor suicidal ideation closely- Follow up in one week and discuss medication options after reviewing [employer] testing Generalized Anxiety DisorderAssessment : Patient reports anxiety levels ranging from 4-5 out of 10, consistent with previous visits. No significant change noted.Plan:- Continue current anxiety management regimen- Monitor symptoms and adjust treatment as needed Spravato Therapy- Patient remains an appropriate candidate for Spravato treatment.- Patient has no noted contraindications to treatment today.- Patient denied having concerns regarding treatment today.- Tolerating previous sessions well with positive response.- Observed for 2 hours post-dose; patient remained alert, oriented, and cooperative throughout observation. No reported or observed adverse effects, or clinical signs indicating intolerance, distress, or discomfort. Vital signs remained stable. - Post-treatment patient was alert, oriented, and ambulating steadily. - Cleared for discharge per protocol, accompanied by designated local combination truck driver.- Verbalized understanding of post-treatment precautions:Avoid driving, operating machinery, or making major decisions until next day- Patient asked appropriate questions, verbalized understanding, and agreed to the recommended treatment and to continue to be followed.- Patient knows how to reach clinic should any problems, questions, or concerns arise. 03/24/2025 Other Nettie material was published, Sertraline material was published 1. Major Depressive Disorder - Patient rates depression at 01/22. - Reports feeling like there's nothing to look forward to and not wanting to keep going. - Difficulty managing daily responsibilities , persistent thoughts about recent breakup, and feelings of not progressing in his life. - Plan: a. Start Zoloft 50 mg daily. b. Increase lithium to 300 mg twice daily. c. Continue Spravato treatments weekly. d. Obtain lithium level 5 days after dose increase, with 10-hour gap between last dose and blood draw. e. lab work ordered. 2. Suicidal Ideation - Reports having visions of suicide but denies intent or plan. - No access to firearms, but knives are present in his home. - Plan: a. Develop safety plan with mother. b. Consider inpatient hospitalization- patient denied. c. Continue close monitoring during follow-up appointments. d. Provided crisis prevention hotline number (092). e. patient aware of when to seek emergency services. 3. Financial Stress - Patient expresses significant distress over student loan debt for unfinished degree. - Plan: a. Provided information on income-driven repayment plans and public loan forgiveness program. b. Encouraged patient to explore options on the [employer] student loan website. c. printed off instructions on how to apply. Plan Of Treatment Pending Test Test Name Order Date CBC With Differential/Platelet Nettie (Eskalith), Serum 11/20/2023 TSH+Free T4 11/20/2023 Comp. Metabolic Panel (14) 11/20/2023 Cytochrome P450 2D6 Genotyping 5 Cytochrome P450 2C9 Genotyping 5 Cytochrome P450 2C19 03/06/2025 Urinalysis 11/20/2023 LIPID PANEL, STANDARD (7600) 03/24/2025 THYROID PANEL WITH TSH (7444) 12/02/2024 BASIC METABOLIC PANEL (10464) 03/24/2025 COMPREHENSIVE METABOLIC PANEL (28813) CBC (H/H, RBC, INDICES, WBC, PLT) (1759) 03/24/2025 CBC (INCLUDES DIFF/PLT) (6399) HEMOGLOBIN A1c (496) 03/24/2025 VITAMIN B12/FOLATE, SERUM PANEL (7065) 0 12/02/2024 TSH W/REFLEX TO FT4 (44285) 03/24/2025 VITAMIN D,25-OH,TOTAL,IA (93327) 025 VITAMIN D,25-OH,TOTAL,IA (33454) 025 LITHIUM (613) 03/24/2025 UDT 03/28/2025 Next Appt Details Provider Name:Saleem Kwon, 03/30/2025 08:00:00 AM, [address] [facility], [address], [address], Provider Name:Saleem Kwon, 04/06/2025 08:00:00 AM, [address], [address], [address], Provider Name:Saleem Kwon, 04/13/2025 08:00:00 AM, [address], [address], [address], Provider Name:Stacy zaidi, 04/20/2025 08:00:00 AM, [address], [address], [address], Provider Name:Stacy zaidi, 04/27/2025 08:00:00 AM, [address], [address], [place], [address], Provider Name:Stacy zaidi, 05/04/2025 08:00:00 AM, [address], [address], [place], [address], Provider Name:Stacy zaidi, 05/18/2025 08:00:00 AM, [address], [address], [place], [address], Provider Name:Stacy zaidi, 05/25/2025 08:00:00 AM, [address], [address], [place], [address], Provider Name:Stacy zaidi, 06/01/2025 08:00:00 AM, [address], [address], [place], [address], Insurance Providers Payer Name Payer Address Payer Phone Subscriber Number Group Number Insured Name Patient Relationship to Insured Coverage Start Date Coverage End Date [employer] [employer] [address] [place] [phone] [id number] ANKIT HERNANDEZ Parent Medications Administered Medication Instructions Date of Administration Dosage Notes Spravato (84 MG Dose) 11/20/2023 84 mg Spravato (84 MG Dose) 12/01/2023 84 mg Spravato (84 MG Dose) 01/05/2024 84 mg Spravato (84 MG Dose) 01/19/2024 84 mg Spravato (84 MG Dose) 02/02/2024 84 mg Spravato (84 MG Dose) 02/16/2024 84 mg Spravato (84 MG Dose) 03/15/2024 84 mg Spravato (84 MG Dose) 03/29/2024 84 mg Spravato (84 MG Dose) 04/12/2024 84 mg Spravato (84 MG Dose) 05/05/2024 84 mg Spravato (84 MG Dose) 05/19/2024 84 mg Spravato (84 MG Dose) 06/02/2024 84 mg Spravato (84 MG Dose) 06/16/2024 84 mg Spravato (84 MG Dose) 06/30/2024 84 mg Spravato (84 MG Dose) 07/14/2024 84 mg Spravato (84 MG Dose) 07/28/2024 84 mg Spravato (84 MG Dose) 08/11/2024 84 mg Spravato (84 MG Dose) 08/25/2024 84 mg Spravato (84 MG Dose) 09/08/2024 84 mg Spravato (84 MG Dose) 09/22/2024 84 mg Spravato (84 MG Dose) 10/06/2024 84 mg Spravato (84 MG Dose) 10/20/2024 84 mg Spravato (84 MG Dose) 11/03/2024 84 mg Spravato (84 MG Dose) 11/17/2024 84 mg Spravato (84 MG Dose) 12/01/2024 84 mg Spravato (84 MG Dose) 12/29/2024 84 mg Spravato (84 MG Dose) 01/12/2025 84 mg Spravato (84 MG Dose) 01/26/2025 84 mg Spravato (84 MG Dose) 02/09/2025 84 mg Spravato (84 MG Dose) 02/23/2025 84 mg Spravato (84 MG Dose) 03/09/2025 84 mg Spravato (84 MG Dose) 03/16/2025 84 mg Spravato (84 MG Dose) 03/23/2025 84 mg Medical (General) History Medical History History ICD Code Problems: Attention deficit hyperactivit y disorder 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
--- OUTSIDE RECORDS SUMMARY | 2025-03-28 11:30 | XMS_ITS | Clinical Summary ---
Author Organization [facility] Address [address] [facility], [place] [address] Phone Care Team Providers Care Student Services Director Name Role Phone Onesimo Roblero MD Primary Care Provider [phone] Allergies Active Allergy Reactions Criticality Noted Date Comments Lamotrigine Rash 04/12/2020 Sulfamethizole Unknown 01/03/2020 Trimethoprim Unknown 01/03/2020 Medications LevETIRAcetam (KEPPRA) 1000 MG TabletIndicatio ns:Temporal lobe epilepsy Take 1.5 Tablets by mouth 2 times daily. 90 Tablet 3 10/22/2020 Active lacosamide 150 MG TabletIndicatio ns:Temporal lobe epilepsy Take 1 Tablet by mouth 2 times daily. 60 Tablet 3 12/11/2020 Active Family History Medical History Relation Name Comments Chronic Obstructive Pulmonary Disease Father Chronic Obstructive Pulmonary Disease Mother Relation Name Status Comments Father Mother Social History Tobacco Use Types Packs/Day Years Used Date Smoking Tobacco: Never Smokeless Tobacco: Never Alcohol Use Standard Drinks/Week Comments Not Currently 0 (1 standard drink = 0.6 oz pur e alcohol) AUDIT-C Answer Date Recorded Q1: How often do you have a drink containing alc ohol? Never 01/03/2020 Average Number of Drinks Not on file 020 Frequency of Binge Drinking Not on file 12/14 Sex and Gender Information Value Date Recorded Sex Assigned at Not on file Legal Sex Male 10:01 AM CDT Gender Identity Not on file Sexual Orientation Not on file Last Filed Vital Signs Vital Sign Reading Time Taken Comments Blood Pressure 120/76 11/09/2020 3:17 PM CDT Pulse 83 11/09/2020 3:17 PM CDT Temperature 36.9 C (98.4 F) 11/09/2020 3:17 PM CDT Respiratory Rate 17 11/09/2020 3:17 PM CDT Oxygen Saturation 98% 11/09/2020 3:17 PM CDT Inhaled Oxygen Concentration - - Weight 95.8 kg (211 lb 3.2 oz) 11/09/2020 3:17 P M CDT Height 172.7 cm (5' 8) 11/09/2020 3:17 PM CDT Body Mass Index 32.11 11/09/2020 3:17 PM CDT Plan of Treatment Health Maintenance Due Date Last Done Comments Hepatitis C Virus (HCV) Screening 1994 TdaP Immunization 1994 Hepatitis B Immunization (1 of 3 - 19+ 3-dose series) 2013 Human Papillomavirus (HPV) Immunization (1 - 3-dose SCDM series) 2021 Influenza Immunization (#1) 02/13/202503/16, 04/30/2018 SARS-COV-2 Immunization ( season) 2025 06/25/2021, 11/24/2020, 10/27/2020 Respiratory Syncytial Virus (RSV) Immunization (Adult) (1 - 1-dose 75+ series) 2069 Meningococcal Immunization (ACWY) Aged Out No longer eligible b ased on patient's age to complete this topic Pneumococcal Immunization Combined Aged Out No longer eligible b ased on patient's age to complete this topic Rotavirus Immunization Aged Out No lo nger eligible based on patient's age to complete this topic Insurance [facility] Care Teams Student Services Director Relationship Specialty Start Date End Date Onesimo Roblero MD [address] [place] [id number] PCP - General Family Medicine 12/23/19
[2025-03-28 11:31] LABS: Thyroid Stimulating Hormone Reflex 2.230 uIU/mL (0.465-4.68)
[2025-03-28 12:00] LABS: Add Urine Microscopic? NO; Appearance Urine Clear (Clear); Glucose Urine UA Negative (Negative); Leukocyte Esterase Ur Negative LEU/UL (Negative); Nitrate Urine Negative (Negative); Specific Grav Ur 1.023 (1.001-1.035)
[2025-03-28 12:34] LABS: Cannabinoid Screen Urine Negative (Negative)
--- NOTE | 2025-03-28 13:02 | ED_ITS ---
HPI - Psych General Chief Complaint: Psychiatric Symptoms Stated Complaint: suicidal Time Seen by Provider: 03/28/25 12:27 Source: patient Mode of arrival: ambulatory Limitations: no limitations History of Present Illness HPI Narrative: This is a 29 year old male that presents to the ER for suicidal ideations. Reports he had thoughts of slitting his wrists, but does not plan to act on this. Reports worsening depression over the last week. No previous attempts at self harm or psychiatric hospitalizations. He does see a counselor, but is not on an antidepressant. Related Data Home Medications ?Medication ?Instructions ?Recorded ?Confirmed ?Last Taken ?Type levetiracetam 1,000 mg tablet 1,500 mg PO BID 08/30/20 02/22/25 Unknown History (Keppra) lacosamide 50 mg tablet (Vimpat) 200 mg PO BID 1 02/22/25 Unknown History Allergies Allergy/AdvReac Type Severity Reaction Status Date / Time lamotrigine Allergy Mild Rash Verified 03/28/25 10:09 sulfamethizole Allergy Unknown Skin Verified 03/28/25 10:09 Reaction sulfamethoxazole Allergy Unknown UNKNOWN Verified 03/28/25 10:09 trimethoprim Allergy Unknown UNKNOWN Verified 03/28/25 10:09 Review of Systems 2 Review of Systems: All systems reviewed & are unremarkable except as noted in HPI and below PMFSH Past Medical History Medical History Infected pilonidal cyst Strain of muscle and tendon of front wall of thorax, initial encounter right sided Seizure disorder Hepatitis A History of pilonidal cyst had surgery on one back in 2012 or 2013 and it never went away Bipolar affective disorder, currently depressed, moderate Pilonidal cyst without abscess Severe depressive episode with psychotic symptoms Surgical History Surgical History History of incision and drainage Family History Family History Father COPD (chronic obstructive pulmonary disease) Mother COPD (chronic obstructive pulmonary disease) Social History Social History Smoking status: Never smoker Alcohol intake: never Substance use type: marijuana Lack of Transportation: No Lack of Food: Never True Current Housing: I Have Housing Concerned About Future Housing: No Difficulty Paying Gas/Electric Bills: No Difficulty Paying for Meds: No Currently Unemployed: No Education: Associate Degree Difficulty w/ Childcare or Family Care: No Exam 2 Narrative: GENERAL: Well-appearing, well-nourished, and in no acute distress. HEAD: Normocephalic, atraumatic. EYES: EOMI. CHEST: No respiratory distress. HEART: Regular rate EXTREMITIES: Normal range of motion. No edema. SKIN: Warm, dry, no rash. NEURO: No focal deficits. Alert and oriented x3. PSYCH: Flat mood and affect Course Course Emergency Course: patient medically cleared for evaluation by crisis Consultations Consultation #1: Evaluated by crisis, safety plan is in place. Patient and mother are in agreement Date: 03/28/25 Vital Signs Vital signs: Vital Signs Temperature 97.5 F L 03/28/25 10:04 Pulse Rate 94 03/28/25 10:04 Respiratory Rate 20 03/28/25 10:04 Blood Pressure 163/100 H 03/28/25 10:04 Pulse Oximetry 98 03/28/25 10:04 Oxygen Delivery Room Air 03/28/25 10:04 Temperature 97.5 F L 03/28/25 10:04 Pulse Rate 94 03/28/25 10:04 Respiratory Rate 20 03/28/25 10:04 Blood Pressure 163/100 H 03/28/25 10:04 Pulse Oximetry 98 03/28/25 10:04 Oxygen Delivery Room Air 03/28/25 10:04 MDM - Psych MDM Narrative Medical decision making narrative: Patient presents the emergency department for passive suicidal ideations. Reports no plan to act on this. History of longstanding depression. He is currently plugged in with a psychiatrist. No previous history of self harm. He lives with his mother who is very supportive. CBC and metabolic panel without concerning findings. TSH is normal. Drug screen is negative. Evaluated by crisis, safety plan is in place. Patient and mother are in agreement. Given warnings to return to the ER Differential Diagnosis Differential diagnosis: Likely suicidal ideation, bipolar disorder, depression and acute anxiety Lab Data Attestation: I reviewed the patient's lab results. 03/28/25 10:36 03/28/25 10:35 Labs: Lab Results 03/28/25 03/28/2503/28/25 Range/Units 10:25 10:35 10:36 WBC 7.7 (4.5-10.0) K/mm3 RBC 5.30 (4.6-6.20) M/mm3 Hgb 16.7 (14.0-18.0) g/dL Hct 49.0 (42.0-52.0) % MCV 92.5 (80-100) fl MCH 31.5 (26-34) pg MCHC 34.1 (32-36) g/dl RDW 11.9 (11.5-14.5) % Plt Count 262 (150-375) k/mm3 MPV 9.9 (7.4-10.4) fl Immature Gran % (Auto) 0.3 (0-0.5) % Neut % (Auto) 62.8 (45.5-73.1) % Lymph % (Auto) 26.6 (18.3-44.2) % [place] % (Auto) 7.5 (2.6-8.5) % Eos % (Auto) 2.3 (0-4.4) % Baso % (Auto) 0.5 (0.2-1.2) % Lymph # (Auto) 2.05 (0.9-3.2) K/mm3 [place] # (Auto) 0.6 (0.1-0.6) K/mm3 Eos # (Auto) 0.2 (0-0.3) K/mm3 Baso # (Auto) 0.0 (0.0-0.1) K/mm3 Abs Immat Gran (auto) 0.02 (0.00-0.031) K/mm3 Absolute Neuts (auto) 4.9 (1.3-6.7) K/mm3 Absolute Nucleated RBC 0.000 (0.0-0.012) K/mm3 Nucleated RBC % 0.0 (0.0-0.2) % Sodium 140 (137-145) mmol/L Potassium 4.3 (3.4-5.0) mmol/L Chloride 106 (98-107) mmol/L Carbon Dioxide 22 (22-30) mmol/L Anion Gap 12 (4-12) mmol/L BUN 13 (9-20) mg/dL Creatinine 0.91 (0.7-1.3) mg/dL Estim Creat Clear Calc 130 ml/min Estimated GFR > 60 (59 - ) Glucose 114 H (65-110) mg/dL Calcium 9.6 (8.4-10.2) mg/dL Total Bilirubin 1.0 (0.2-1.3) mg/dL AST 65 H (17-59) U/L ALT 106 H (6-50) U/L Alkaline Phosphatase 55 (38-126) U/L Total Protein 7.9 (6.3-8.2) g/dL Albumin 5.1 (3.5-5.1) g/dL TSH (Reflex) 2.230 (0.465-4.68) uIU/mL Urine Color (Yellow) Urine Appearance (Clear) Urine pH (5.0-9.0) Ur Specific [place] (1.001-1.035) Urine Protein (Negative) mg/dL Urine Glucose (UA) (Negative) mg/dL Urine Ketones (Negative) mg/dL Ur Blood (Man) (Negative) Urine Nitrate (Negative) Urine Bilirubin (Negative) Urine Urobilinogen (<2.0) mg/dL Leukocyte Esterase Rfl (Negative) [place]/UL Urine Opiates Screen (Negative) Urine Methadone Screen (Negative) Ur Barbiturates Screen (Negative) Ur Phencyclidine Scrn (Negative) Ur Amphetamine Screen (Negative) U Benzodiazepines Scrn (Negative) Urine Cocaine Screen (Negative) U Cannabinoids Screen (Negative) Ethyl Alcohol < 10 (<10) mg/dL SARS-CoV-2 RNA (RT-PCR) Negative (Negative) 03/28/25 Range/Units 11:51 WBC (4.5-10.0) K/mm3 RBC (4.6-6.20) M/mm3 Hgb (14.0-18.0) g/dL Hct (42.0-52.0) % MCV (80-100) fl MCH (26-34) pg MCHC (32-36) g/dl RDW (11.5-14.5) % Plt Count (150-375) k/mm3 MPV (7.4-10.4) fl Immature Gran % (Auto) (0-0.5) % Neut % (Auto) (45.5-73.1) % Lymph % (Auto) (18.3-44.2) % [place] % (Auto) (2.6-8.5) % Eos % (Auto) (0-4.4) % Baso % (Auto) (0.2-1.2) % Lymph # (Auto) (0.9-3.2) K/mm3 [place] # (Auto) (0.1-0.6) K/mm3 Eos # (Auto) (0-0.3) K/mm3 Baso # (Auto) (0.0-0.1) K/mm3 Abs Immat Gran (auto) (0.00-0.031) K/mm3 Absolute Neuts (auto) (1.3-6.7) K/mm3 Absolute Nucleated RBC (0.0-0.012) K/mm3 Nucleated RBC % (0.0-0.2) % Sodium (137-145) mmol/L Potassium (3.4-5.0) mmol/L Chloride (98-107) mmol/L Carbon Dioxide (22-30) mmol/L Anion Gap (4-12) mmol/L BUN (9-20) mg/dL Creatinine (0.7-1.3) mg/dL Estim Creat Clear Calc ml/min Estimated GFR (59 - ) Glucose (65-110) mg/dL Calcium (8.4-10.2) mg/dL Total Bilirubin (0.2-1.3) mg/dL AST (17-59) U/L ALT (6-50) U/L Alkaline Phosphatase (38-126) U/L Total Protein (6.3-8.2) g/dL Albumin (3.5-5.1) g/dL TSH (Reflex) (0.465-4.68) uIU/mL Urine Color Yellow (Yellow) Urine Appearance Clear (Clear) Urine pH 6.0 (5.0-9.0) Ur Specific [place] 1.023 (1.001-1.035) Urine Protein Negative (Negative) mg/dL Urine Glucose (UA) Negative (Negative) mg/dL Urine Ketones Trace H (Negative) mg/dL Ur Blood (Man) Negative (Negative) Urine Nitrate Negative (Negative) Urine Bilirubin Negative (Negative) Urine Urobilinogen 0.2 (<2.0) mg/dL Leukocyte Esterase Rfl Negative (Negative) [place]/UL Urine Opiates Screen Negative (Negative) Urine Methadone Screen Negative (Negative) Ur Barbiturates Screen Negative (Negative) Ur Phencyclidine Scrn Negative (Negative) Ur Amphetamine Screen Negative (Negative) U Benzodiazepines Scrn Negative (Negative) Urine Cocaine Screen Negative (Negative) U Cannabinoids Screen Negative (Negative) Ethyl Alcohol (<10) mg/dL SARS-CoV-2 RNA (RT-PCR) (Negative) Critical Care Time Critical Care Time Critical Care Time: No Discharge Plan Discharge Clinical Impression: Depression Qualifiers: Depression Type: unspecified Qualified Code(s): F32.A - Depression, unspecified Patient Disposition: Home Condition: Stable Instructions: Depression (ED), Suicide Prevention (ED) Additional Instructions: Return to the emergency department if you experience thoughts of harming yourself or anyone else, or any other symptoms that are concerning to you. Follow up with your psychiatrist and resources provided by crisis Patient Language: Cymraes Prescriptions: No Action levetiracetam [Keppra] 1,000 mg tablet 1,500 mg PO BID Vimpat 50 mg tablet 200 mg PO BID sucralfate 1 gram tablet 1 g PO Q6H Qty: 30 0RF albuterol sulfate 90 mcg/actuation HFA aerosol inhaler 2 puff inhalation Q4H PRN (Reason: shortness of breath or wheezing) Qty: 8.5 0RF Follow-up/Referrals: Onesimo Roblero MD [Primary Care Provider, [facility]]
--- OUTSIDE RECORDS SUMMARY | 2025-03-28 14:10 | XMS_ITS | Clinical Summary ---
Author Organization [facility] Address [address] [place] [address] Care Team Providers Care Deckhand Crab Boat Name Role Phone Onesimo Roblero MD Primary Care Provider [phone] Source Comments [facility],non-owned Affiliates and Associated Physician Practices is amultiple site organization consisting of ambulatory clinics and hospital sitesin [place], [place], [place] and [place]. This disclosure is being madepursuant to the Care Everywhere program and may not contain all information available regarding this patient. Last updated 18.[facility] Allergies Active Allergy Reactions Criticality Noted Date Comments Lamotrigine Urticaria,Itching Medium 10/29/2020 [place] Unknown 04/20/2024 Sulfamethoxazole W-Trimethoprim Urticaria Medium 10/13 [...] Type Department Care Team Description 12/29/2024 Refill [facility] [address] [id number] Tung Madison MD MEDICATION REFILL from Last [...] 111.1 kg (245 lb) 04/20/2024 12:39 PM MITER SAW OPERATOR Height 172.7 cm (5' 8) 04/20/2024 12:39 PM MITER SAW OPERATOR Body Mass Index 37.25 04/20/2024 12:39 PM MITER SAW OPERATOR Plan of Treatment Upcoming Encounters Date Type Department Care Team (Late st Contact Info) Description 04/19/2025 12:00 PM MITER SAW OPERATOR Office Visit [facility] [address] [address] [place] [address] [address] Health Maintenance Due Date Last [...] 9:56 AM 10/31/2020 2:02 PM Care Teams Deckhand Crab Boat Relationship Specialty Start Date End Date Onesimo Roblero MD [facility] [place] [address] PCP - General Family Medicine 10/29/20
--- OUTSIDE RECORDS SUMMARY | 2025-03-28 14:10 | XMS_ITS | Clinical Summary ---
Author Organization [facility] Address [address] [facility] [place] [address] Phone Care Team Providers Care Landscape Architect Name Role Phone Onesimo Roblero MD Primary Care Provider [phone] Allergies Active Allergy Reactions Criticality Noted Date [...] patient's age to complete this topic Insurance [facility] Care Teams Landscape Architect Relationship Specialty Start Date End Date Onesimo Roblero MD [address] [place] [id number] PCP - General Family Medicine 12/23/19
[2025-03-28 15:55] VITALS: BP 134/95; PULSE 71; RESP 16; TEMP 36.4; O2SAT 99
== END 2025-03-28 15:57 | disposition home or self-care (01) ==
PROVIDERS: Student in an Organized Health Care Education/Training Program; Emergency Provider Physician Assistant; PCP Family Medicine
DX: F32.A Depression, unspecified (principal); R45.851 Suicidal ideations; Z20.822 Contact with and (suspected) exposure to COVID-19; Z79.899 Other long term (current) drug therapy
CPT/HCPCS: 36415; 80053; 80307; 81003; 82077; 84443; 85025; 87635; 99284

== ENCOUNTER 2025-04-22 08:27 | Emergency (ER) | payer BC, SELFPAY ==
--- NOTE | ~2025-04-22 | XR_ITS ---
Examination: XR chest 2V Clinical History: chest pain Comparison: None Technique: PA and Lateral Findings: Cardiomediastinal silhouette normal size and configuration. Right middle lobe and lingular streaky atelectasis. No acute bony abnormality. IMPRESSION: 1. Streaky linear atelectasis right middle lobe and lingula. Mild pneumonitis cannot be excluded. Reviewed, dictated and finalized at location [facility]. K FOODS MIXER OPERATOR
[2025-04-22 08:46] VITALS: BP 139/107; PULSE 83; RESP 16; TEMP 36.6; O2SAT 97
--- NOTE | 2025-04-22 08:55 | ECG_ITS ---
Test Date: 2025-04-22 09:13:12 Measurements Intervals [place] Rate: 72 P: 38 NV: 152 QRS: 16 QRSD: 90 T: 29 QT: 379 QTc: 417 Interpretive Statements SINUS RHYTHM NORMAL ECG INTERPRETATION BASED ON A DEFAULT AGE OF 40 YEARS No previous ECG available for comparison Electronically Signed On 04-22-2025 16:18:16 DOCTOR ASSISTANT by Inderjit Cooper M.D.
--- NOTE | 2025-04-22 08:55 | ED.CHESTPAIN ---
HPI - Chest Pain General Chief Complaint: Chest Pain Stated Complaint: persistent chest pain Time Seen by Provider: 04/22/25 08:42 Patient presents to the [facility] with complaints persistent middle chest pain that began 2 days ago in the evening. Patient was at primary care office 2 days ago for a wellness visit but was feeling well at the time of the visit. Patient noted no other symptoms including shortness of breath, cough, cold-like symptoms, headache, dizziness, burning in chest, nausea, vomiting, diarrhea, or heart fluttering. Patient attempted Tums and Tylenol without relief of symptoms. Patient does note he has had some recent mental health medication changes from a psychiatrist. Denies any significant anxiety, SI, or HI. Noted on the way to [facility] Care today chest pain did improve. Related Data Home Medications ?Medication ?Instructions ?Recorded ?Confirmed ?Last Taken ?Type levetiracetam 1,000 mg tablet 1,500 mg PO BID 08/30/20 04/20/25 Unknown History (Keppra) lacosamide 50 mg tablet (Vimpat) 200 mg PO BID 04/01/21 04/20/25 Unknown History fluoxetine 10 mg capsule 10 mg PO DAILY 04/20/25 04/20/25 Unknown History lithium carbonate 300 mg capsule 300 mg PO BID 04/20/25 04/20/25 Unknown History olanzapine 5 mg tablet 5 mg PO DAILY 04/20/25 04/20/25 Unknown History albuterol sulfate 90 mcg/actuation inhalation 04/22/25 Unknown History aerosol inhaler ergocalciferol (vitamin D2) 1,250 04/22/25 Unknown History mcg (50,000 unit) capsule esketamine 84 mg (28 mg x 3) nasal mg intranasal 04/22/25 Unknown History spray (Spravato) lacosamide 200 mg tablet mg 04/22/25 Unknown History olanzapine 2.5 mg tablet mg 04/22/25 Unknown History sertraline 50 mg tablet mg 04/22/25 Unknown History Allergies Allergy/AdvReac Type Severity Reaction Status Date / Time lamotrigine Allergy Mild Rash Verified 04/22/25 08:56 sulfamethizole Allergy Unknown Skin Verified 04/22/25 08:56 Reaction sulfamethoxazole Allergy Unknown UNKNOWN Verified 04/22/25 08:56 trimethoprim Allergy Unknown UNKNOWN Verified 04/22/25 08:56 Review of Systems Constitutional: Constitutional: Reports as per HPI, Denies chills, Denies fatigue, Denies fever(s) and Denies weakness Eyes: Eyes: Reports no additional eye complaints ENT: Reports as per HPI, Denies vertigo, Denies dizziness, Denies nasal congestion and Denies sore throat Cardiovascular: Cardiovascular: Reports as per HPI, Reports chest pain, Denies rapid heart rate, Denies radiating jaw, neck or arm pain and Denies slow heart rate Respiratory: Respiratory: Reports as per HPI, Denies chest congestion, Denies cough, Denies dyspnea and Denies wheezing Gastrointestinal: Gastrointestinal: Reports as per HPI, Denies abdominal pain, Denies bloating, Denies constipation, Denies heartburn, Denies diarrhea, Denies nausea and Denies vomiting Genitourinary: Genitourinary: Reports no additional male genitourinary complaints Musculoskeletal: Musculoskeletal: Reports as per HPI, Denies back pain, Denies myalgias, Denies arthralgias, Denies joint swelling and Denies muscle cramps Integumentary/Breasts: Skin/Breast: Reports as per HPI, Denies pruritus, Denies erythema, Denies rash and Denies skin ulcer Neurologic: Reports as per HPI, Denies vertigo, Denies dizziness, Denies syncope, Denies headache(s), Denies numbness and Denies weakness Psychiatric: Psychiatric: Reports as per HPI, Denies anxiety, Denies depression, Denies homicidal ideation and Denies suicidal ideation Endocrine: Endocrine: Reports no additional endocrine complaints Hematologic/Lymphatic: Hematologic/Lymphatic: Reports no additional hematologic/lymphatic complaints Allergic/Immunologic: Allergic/Immunologic: Reports no additional allergic/immunologic complaints [facility] Past Medical History Medical History Infected pilonidal cyst Strain of muscle and tendon of front wall of thorax, initial encounter right sided Seizure disorder Hepatitis A History of pilonidal cyst had surgery on one back in 2012 or 2013 and it never went away Bipolar affective disorder, currently depressed, moderate Pilonidal cyst without abscess Severe depressive episode with psychotic symptoms Surgical History Surgical History History of incision and drainage Family History Family History Father COPD (chronic obstructive pulmonary disease) Mother COPD (chronic obstructive pulmonary disease) Social History Social History Alcohol intake: never Substance use type: marijuana Lack of Transportation: No Lack of Food: Never True Current Housing: I Have Housing Concerned About Future Housing: No Difficulty Paying Gas/Electric Bills: No Difficulty Paying for Meds: No Currently Unemployed: No Education: Associate Degree Difficulty w/ Childcare or Family Care: No Exam Const: General: healthy appearing and no acute distress Nutritional Appearance: well nourished Orientation/consciousness: patient oriented x3 Limitations: no limitations Eyes: Conjunctivae: conjunctivae normal Pupils: Equal, round and reactive pupils present EOM: EOMs intact bilaterally Direct Ophthalmoscopy: no photophobia Neck: Neck: normal visual inspection and no lymphadenopathy Chest: Chest palpation & inspection: normal inspection of the chest, no tenderness and No Pacemaker present Resp: Effort & Inspection: normal respiratory effort Auscultation: clear to auscultation bilaterally Cardio: Rate: regular rate Rhythm: regular rhythm Skin: General skin exam: normal color Rashes: no rashes Wounds: no wounds Neuro: General: patient oriented x3, moves all extremities, no meningeal signs, no focal motor deficits and CN's II-XI intact bilaterally Cranial nerves: Yes Nystagmus not present Speech: normal speech Gait exam (Neuro): Normal gait present Extrem: General: normal to inspection, no clubbing, cyanosis or edema and no pedal edema Psych: Mental Status: mental status grossly normal Affect: normal affect Attitude: cooperative Course Course Level of Care: Express Care Visit Vital Signs Vital signs: Vital Signs Temperature 97.9 F 04/22/25 08:46 Pulse Rate 83 04/22/25 08:46 Respiratory Rate 16 04/22/25 08:46 Blood Pressure 139/107 H 04/22/25 08:46 Pulse Oximetry 97 04/22/25 08:46 Temperature 97.9 F 04/22/25 08:46 Pulse Rate 83 04/22/25 08:46 Respiratory Rate 16 04/22/25 08:46 Blood Pressure 139/107 H 04/22/25 08:46 Pulse Oximetry 97 04/22/25 08:46 MDM - Chest Pain MDM Narrative Medical decision making narrative: Chest pain improving today. EKG and chest x-ray to be completed in Express Care today. The patient was evaluated by myself in the [facility] care. History is obtained from patient who is an independent historian and physical exam was performed. Available medical records were reviewed at this time. Exam findings show no acute concerns or changes; patient is non-toxic appearing and is in no distress. Patient is appropriate for outpatient treatment and follow-up. I have evaluated and discussed social determinants of health with the patient that could potentially impact subsequent diagnosis and treatment plans. Differential diagnosis and treatment plan were discussed with the patient. Patient agrees with discussion and after shared medical decision making agrees with plan of care. All questions were answered to the patient's satisfaction. Differential Diagnosis Differential diagnosis: Likely stable angina, unstable angina pectoris, costochondritis, chest pain and other (anxiety, GERD ) Medical Records Data Attestation: I reviewed the patient's medical records. Imaging Data Radiologist's impression: IMPRESSION: 1. Streaky linear atelectasis right middle lobe and lingula. Mild pneumonitis cannot be excluded. Reviewed, dictated and finalized at location [facility] ECG Data EKG #1: ECG completion date: 04/22/25 ECG completion time: 09:13 Prior ECG tracings: not available for review Interpretation: normal EKg, no concerns. EKG Interpretation: normal rate Discharge Plan Discharge Clinical Impression: Pneumonitis Patient Disposition: Home Condition: Stable Instructions: Antibiotic Form, Pneumonitis (ED), Chest Wall Pain (ED) Additional Instructions: Take the antibiotics as directed for the entire course. Do not miss any doses. What you are taking antibiotics and is recommended to take a probiotic or have yogurt daily to return the good gut bacteria to your system. This can also help with acute diarrhea while taking antibiotics. It can take 24-48 hours for the antibiotics to start to relieve your symptoms continue to take these medications to help with various symptoms: Tylenol or Motrin for pain, headache, or fever Flonase/fluticasone or Nasacort/triamcinolone nasal spray- helps with congestion and nasal drainage. Sudafed/pseudoephedrine helps with sinus pain and congestion. Caution with high blood pressure. Use a humidifier or vaporizer at night. Drink plenty of water. 8-10 glasses per day. Mucinex/guaifenesinas directed and be sure to take with 8oz of water. Warm compresses over the forehead and cheeks to promote sinus drainage. Return to urgent care or go to the ER for new or worsening symptoms. Follow up with Primary provider if not improved after 1 week. Patient Language: Romanian Prescriptions: New azithromycin 250 mg tablet See Rx Instructions .ROUTE .COMPLEX Qty: 6 0RF Rx Instructions: For 250 mg dose pack: take 500 mg today (day 1), then 250 mg for 4 days (days 2-5) methylprednisolone [Medrol (Jerry)] 4 mg tablets,dose pack See Rx Instructions .ROUTE .COMPLEX Qty: 21 0RF Rx Instructions: for 6 days No Action olanzapine 2.5 mg tablet ergocalciferol (vitamin D2) 1,250 mcg (50,000 unit) capsule albuterol sulfate 90 mcg/actuation HFA aerosol inhaler INHALATION sertraline 50 mg tablet lacosamide 200 mg tablet Spravato 84 mg (28 mg x 3) spray,non-aerosol INTRANASAL lithium carbonate 300 mg capsule 300 mg PO BID olanzapine 5 mg tablet 5 mg PO DAILY fluoxetine 10 mg capsule 10 mg PO DAILY levetiracetam [Keppra] 1,000 mg tablet 1,500 mg PO BID Vimpat 50 mg tablet 200 mg PO BID Follow-up/Referrals: Onesimo Roblero MD [[facility]] Time of Disposition: 09:28
== END 2025-04-22 09:30 | disposition home or self-care (01) ==
PROVIDERS: Emergency Provider Nurse Practitioner Family; PCP Family Medicine
DX: J98.4 Other disorders of lung (principal); F12.90 Cannabis use, unspecified, uncomplicated; G40.909 Epilepsy, unspecified, not intractable, without status epilepticus; F31.9 Bipolar disorder, unspecified
CPT/HCPCS: 71046; 93005; 99213; G0463